=== PATIENT | female | born 1935 | race Caucasian/White ===

== ENCOUNTER → 2016-07-16 | Outpatient (REF) | payer MEDICARE ==
[~2016-07-16] MED LIST: /DULO30CA OR; ACET-654 PO; ALBU17IN INH; AMLO10TA OR; AMLO10TA2 PO; AMOX500C PO; ANUS2.5C2 TOP; AUGM875T27 PO; BABY81CH PO; BENI20TA11 OR; BENI40TA3 PO; Benicar PO; CALCTAB41 PO; CIPR500T89 PO; CRAN1TAB PO; CYMB1CAP5 PO; FERR325T PO; FISH1000 PO; GLUCTAB2 OR; HYDR-3713 PO; HYDR12.55 PO; LEVO25TA5 PO; LEVOTHYROXINE PO; LYRI150C OR; LYRI75CA PO; METF-414 PO; METF500T PO; METO-207 PO; MUCI600T34 PO; MULTIVIT PO; Metformin PO; NITRO10CA PO; OMEP20TA7 OR; ONGL10TA3 PO; ONGLYZA PO; Onglyza; PAIN325T OR; PRAV40TA OR; PRAV40TA PO; PRED20TA PO; PREPOI TOP; TOPR200T OR; TRAM50TA2 PO; TRIC145T19 PO; ULTR50TA PO; VICO5TAB OR; VICO5TAB16 PO; VICODINES TAB OR; VIT D 1000 UNIT PO; VITA100037 PO; VITA100066 PO; VITMTA PO; WOMETAB9 PO; XARE20TA PO; deltasone PO
[2016-07-16 11:23] LABS: CALCIUM LEVEL 9.6 MG/DL (8.8-10.2); CREATININE FOR GFR 0.98 MG/DL (0.55-1.02); GLOMERULAR FILTRATION RATE 57.7 (>32); POTASSIUM SERUM 4.6 MEQ/L (3.5-5.1)
== END ==
PROVIDERS: ATTEND Nurse Practitioner Adult Health
DX: I10 Essential (primary) hypertension (principal)

== ENCOUNTER → 2016-07-25 | Day surgery (SDC) | payer MEDICARE ==
[~2016-07-25] VITALS: Ht 170.2 cm; Wt 81.6 kg
[~2016-07-25] MED LIST changes: +ACETAMINOPHEN TAB 650MG DOSE (2X325MG) PO PRN; +GENTGEL OP; +LASI20TA PO; +LIDOCAINE 1% MDV 20ML VIAL SQ PRN; +LR 1,000 ML IV SCH; +MIDAZOLAM INJ 2 MG/2 ML VIAL (J2250) As Ordered ONE; +ONDANSETRON 4MG/2ML VIAL (J2405) As Ordered ONE; +ONDANSETRON 4MG/2ML VIAL (J2405) IV PRN; +PROPOFOL 200 MG/20 ML VIAL As Ordered ONE; +dexameTHASONE 4 MG/ML 1ML VIAL (J1100) As Ordered ONE; +fentaNYL 100 MCG/2 ML INJECTION (J3010) IV PRN; +fentaNYL 250 MCG/5 ML INJECTION (J3010) As Ordered ONE
[2016-07-25 17:25] VITALS: BP 139/72
--- NOTE | 2016-07-25 23:54 | RO ---
DATE OF PROCEDURE: 07/25/2016 PREOPERATIVE DIAGNOSIS: Hematuria with abnormal office cystoscopy. POSTOPERATIVE DIAGNOSIS: Hematuria with abnormal office cystoscopy. PROCEDURE: Cystourethroscopy with bladder biopsies and washing. SURGEON: Dr. Magda Diaz FOAM RUBBER CURER: ANESTHESIA: General endotracheal anesthesia. BRIEF DESCRIPTION OF PROCEDURE AND FINDINGS: Marija was brought to the operating room where sufficient general endotracheal anesthesia was induced and she was prepped, draped, and positioned in the usual sterile fashion. She has a known caruncle; this is a non-issue for her procedure. We then placed the cystoscope and, as in the office, had a view that is almost like a field of snow due to the amount of detritus and inflammation. Pictures were taken to document this. We rinsed out the bladder a few times so as to improve the field of view. Still had quite a bit of debris within the bladder and also marked inflammation and hyperemia of the bladder wall, quite suspicious for abnormal lesion. Some of this was focused on the trigone visually but also the base of the bladder and also extending to the left lateral of the trigone superior and a little bit to the right lateral of it. We did not see as many lesions at the dome, nor did we see lesions anteriorly. We went ahead and biopsied in several locations and gathered some washings for evaluation of the debris on the expectation that this is a significant bladder lesion. All of that was sent for pathologic evaluation. We were able, even with the inflammation of the bladder wall, to simply use the biopsy forceps and do cold biopsies. We did not really have to use cautery, and it was simple enough to get samples and decent adequate samples that we did not feel that we needed to do large cautery biopsies and felt that these would be diagnostic. So, after evaluating the sites where there was no persistent bleeding, just some clots over the sites themselves, the procedure was ended. Again, we already had washings and we had already gathered samples. Estimated blood loss for the procedure was approximately 5 mL. SPECIMENS: Already noted. FLUID REPLACEMENT: Crystalloid. COMPLICATIONS: None. CONDITION AND DISPOSITION: Marija tolerated the procedure well and was recovering in the recovery room in good condition.
== END | disposition home or self-care (01) ==
LOC: M SDC 12:46
PROVIDERS: ATTEND Obstetrics & Gynecology
DX: N32.89 Other specified disorders of bladder (principal); I35.1 Nonrheumatic aortic (valve) insufficiency; I48.0 Paroxysmal atrial fibrillation; I11.9 Hypertensive heart disease without heart failure; E11.9 Type 2 diabetes mellitus without complications; E78.5 Hyperlipidemia, unspecified; K57.32 Diverticulitis of large intestine without perforation or abscess without bleeding; Z87.891 Personal history of nicotine dependence; Z79.899 Other long term (current) drug therapy; Z88.8 Allergy status to other drugs, medicaments and biological substances; Z91.030 Bee allergy status; Z91.041 Radiographic dye allergy status
CPT/HCPCS: 52204; 88108; 88305; J1100; J2250; J2405; J3010

== ENCOUNTER → 2016-07-29 | Outpatient (REF) | payer MEDICARE ==
[~2016-07-29] MED LIST changes: -ACETAMINOPHEN TAB 650MG DOSE (2X325MG) PO PRN; -LIDOCAINE 1% MDV 20ML VIAL SQ PRN; -LR 1,000 ML IV SCH; -MIDAZOLAM INJ 2 MG/2 ML VIAL (J2250) As Ordered ONE; -ONDANSETRON 4MG/2ML VIAL (J2405) As Ordered ONE; -ONDANSETRON 4MG/2ML VIAL (J2405) IV PRN; -PROPOFOL 200 MG/20 ML VIAL As Ordered ONE; -dexameTHASONE 4 MG/ML 1ML VIAL (J1100) As Ordered ONE; -fentaNYL 100 MCG/2 ML INJECTION (J3010) IV PRN; -fentaNYL 250 MCG/5 ML INJECTION (J3010) As Ordered ONE
== END ==
LOC: M LAB REF 17:32
PROVIDERS: ATTEND Nurse Practitioner Family
DX: R30.0 Dysuria (principal)

== ENCOUNTER 2016-08-12 11:49 | Emergency (ER) | payer MEDICARE ==
[~2016-08-12] VITALS: Ht 170.2 cm; Wt 81.6 kg
[2016-08-12 13:09] LABS: BASO % 0.2 % (0.0-1.0); EOS # 0.1 K/mm3 (0.0-0.50); EOS % 1.1 % (0.0-3.0); LARGE UNSTAINED CELL # 0.1 K/mm3 (0.0-0.4); LARGE UNSTAINED CELL % 0.7 % (0.0-4.0); LYMPH # 0.5 K/mm3 (1.5-4.5); LYMPH % 5.2 % (24.0-44.0); MEAN CORPUSCULAR HEMOGLOBIN 29.9 pg (27.0-33.0); MEAN CORPUSCULAR HGB CONC 32.8 g/dl (32.0-36.5); MEAN CORPUSCULAR VOLUME 91.1 fl (80.0-96.0); MONO # 0.5 K/mm3 (0.0-0.8); MONO % 6.4 % (0.0-5.0); NEUTROPHILS # 7.3 K/mm3 (1.8-7.7); NEUTROPHILS % 86.4 % (36.0-66.0); PLATELET COUNT, AUTOMATED 167 k/mm3 (150-450); RED CELL DISTRIBUTION WIDTH 12.3 % (11.5-14.5); WHITE BLOOD COUNT 8.5 K/mm3 (4.0-10.0)
[2016-08-12 13:29] LABS: ANION GAP 8 MEQ/L (8-16); BLOOD UREA NITROGEN 25 MG/DL (7-18); CALCIUM LEVEL 9.4 MG/DL (8.8-10.2); CARBON DIOXIDE LEVEL 31 MEQ/L (21-32); CHLORIDE LEVEL 103 MEQ/L (98-107); CREATININE FOR GFR 0.87 MG/DL (0.55-1.02); GLOMERULAR FILTRATION RATE > 60.0 (>32); GLUCOSE, FASTING 127 MG/DL (83-110); POTASSIUM SERUM 4.1 MEQ/L (3.5-5.1); SODIUM LEVEL 142 MEQ/L (136-145)
[2016-08-12 13:32] LABS: INR 1.62
--- NOTE | 2016-08-12 15:11 | REP ---
PELVIC ULTRASOUND AND ENDOVAGINAL PROBE PELVIC ULTRASOUND: 08/12/2016 CLINICAL HISTORY 81-year-old with postmenopausal bleeding. Status post hysterectomy and left oophorectomy. COMPARISON: 01/04/2016. FINDINGS: Both transabdominal and endovaginal probes were utilized. The bladder was adequately filled at 10.3 x 9.2 x 7.6 cm. There may be some echogenic debris in the bladder. The vaginal cuff is grossly intact. The left ovary is absent. In the right adnexal region, there is a dominant cyst 7.8 x 7.2 x 5.3 cm. It has some complex features of septation. A few internal echoes. No color flow within it. On the previous study it measured 9 x 6.8 x 5.9 cm. The ovary itself including the cyst measured 7.5 x 6.5 x 6.3 cm. There was color flow at the soft tissues peripheral margin of that ovary. No free fluid. IMPRESSION: 1. Complex right adnexal cyst or cystic mass; it measures 7.2 x 7.8 x 5.3 cm. It is slightly smaller than on the previous study. The left adnexa shows no mass or cyst in this patient who had prior removal of that left ovary. Vaginal cuff intact. The bladder showed some likely echogenic debris. Signed by Zachary Naylor MD 08/12/2016 05:21 P
[2016-08-12 16:37] VITALS: BP 174/77
--- NOTE | 2016-08-14 21:10 | ED PDOC ---
Post-Departure Follow-Up dr atwood and dr thorpe faxed formal report of pelvic us for fu Katrin Salcido MD Aug 14, 2016 21:10
== END 2016-08-12 16:53 | disposition home or self-care (01) ==
LOC: EDBD 11:49 → M ED 12:56
DX: N93.9 Abnormal uterine and vaginal bleeding, unspecified (principal); N83.209 Unspecified ovarian cyst, unspecified side; E11.9 Type 2 diabetes mellitus without complications; E78.5 Hyperlipidemia, unspecified; Z91.041 Radiographic dye allergy status; Z91.030 Bee allergy status; Z79.899 Other long term (current) drug therapy; Z88.8 Allergy status to other drugs, medicaments and biological substances; Z79.84 Long term (current) use of oral hypoglycemic drugs; R51 Headache; I10 Essential (primary) hypertension; E78.00 Pure hypercholesterolemia, unspecified; Z87.440 Personal history of urinary (tract) infections; H54.8 Legal blindness, as defined in USA; M54.30 Sciatica, unspecified side; E03.9 Hypothyroidism, unspecified

== ENCOUNTER → 2016-09-04 | Outpatient (REF) | payer MEDICARE ==
[~2016-09-04] MED LIST changes: +ACET30TAB PO; +BACT800T5 PO; +ESTR1CRE PV; +ESTRACE; +GENT0.2D2 OU; +LEVO75TA4 PO; +MILKSUS PO; +MOM30SS PO; +MYRB25TA PO; +XARE15TA PO
== END ==
LOC: M LAB REF 09:23
PROVIDERS: ATTEND Obstetrics & Gynecology
DX: R30.0 Dysuria (principal)

== ENCOUNTER 2016-09-08 15:47 | Emergency (ER) | payer MEDICARE ==
[~2016-09-08] VITALS: Ht 170.2 cm; Wt 81.6 kg
[~2016-09-08 15:47] MED LIST changes: -ACET30TAB PO; -BACT800T5 PO; -ESTR1CRE PV; -ESTRACE; -GENT0.2D2 OU; -LEVO75TA4 PO; -MILKSUS PO; -MOM30SS PO; -MYRB25TA PO; -XARE15TA PO
[2016-09-08] MEDS ORDERED: TETANUS/DIPHTHERIA TOX ADSORB ADULT 0.5ML SYR/VIAL (90714) IM ONE (16:45)
[2016-09-08] MEDS ORDERED: ACETAMINOPH W/CODEINE #3 TAB UD PO ONE (16:45)
--- NOTE | 2016-09-08 17:36 | REP ---
CT CERVICAL SPINE WITHOUT CONTRAST: REASON: Pain in the neck after trauma. COMPARISON: 10/22/2015 Once again, there is marked degenerative seen throughout the cervical spine with marked disc space narrowing and anterior and posterior osteophytosis along with C3 on C4 anterolisthesis all unchanged. Vertebral body height and alignment is unchanged. Multilevel foraminal narrowing status quo. Degenerative hypertrophic facet and uncovertebral joint changes are present at every level bilaterally, unchanged. The transverse processes are absent from C3 to C6. The lamina are also absent. There is no evidence of an acute fracture. There is no evidence of abnormal paraspinal soft-tissue swelling. It should be stated that the images are of poor quality and very grainy in appearance with increased noise to signal ratio. IMPRESSION: Marked chronic changes but no significant change from 10/22/2015 and no evidence of an acute fracture. Due to the poor quality of the images consider repeat using altered technical parameters to increase bone window sensitivity. Signed by Francis Allison DO 09/09/2016 09:56 A
--- NOTE | 2016-09-08 17:52 | REP ---
CT HEAD WITHOUT CONTRAST: REASON: Pain after trauma. COMPARISON: 10/22/2015 Once again, there is cerebral and cerebellar atrophy with ventricular enlargement and sulcal dilatation all stable. There is no evidence of an acute intracranial hemorrhagic or nonhemorrhagic event. There is no shift in the midline structures. There are no extra axial fluid collections. The posterior fossa shows cerebellar atrophy status quo. There is a scalp hematoma over the right frontal region extending toward the vertex. There is no skull fracture. IMPRESSION: Stable appearing chronic changes without evidence of acute disease with findings as described above. Signed by Francis Allison DO 09/09/2016 09:56 A
[2016-09-08 18:27] VITALS: BP 195/83
== END 2016-09-08 18:46 | disposition home or self-care (01) ==
LOC: EDBD 15:47 → M ED 16:05
DX: S00.01XA Abrasion of scalp, initial encounter (principal); W01.198A Fall on same level from slipping, tripping and stumbling with subsequent striking against other object, initial encounter; Y92.129 Unspecified place in nursing home as the place of occurrence of the external cause; Y93.89 Activity, other specified; Y99.8 Other external cause status; E11.9 Type 2 diabetes mellitus without complications; I10 Essential (primary) hypertension; I48.91 Unspecified atrial fibrillation; M48.00 Spinal stenosis, site unspecified; K21.9 Gastro-esophageal reflux disease without esophagitis; D64.9 Anemia, unspecified; Z79.899 Other long term (current) drug therapy; Z79.4 Long term (current) use of insulin; Z91.030 Bee allergy status; Z91.041 Radiographic dye allergy status; Z88.8 Allergy status to other drugs, medicaments and biological substances; Z91.048 Other nonmedicinal substance allergy status

== ENCOUNTER 2016-09-12 18:32 | Emergency (ER) | payer MEDICARE ==
[~2016-09-12] VITALS: Ht 170.2 cm; Wt 87.1 kg
[2016-09-12] MEDS ORDERED: BACT800T5 PO (19:29)
[2016-09-12] MEDS ORDERED: BENI40TA3 PO (19:29)
[2016-09-12] MEDS ORDERED: MYRB25TA PO (19:29)
[2016-09-12 20:08] VITALS: BP 139/77
== END 2016-09-12 20:26 | disposition home or self-care (01) ==
LOC: M ED 19:30
DX: S30.0XXA Contusion of lower back and pelvis, initial encounter (principal); W18.30XA Fall on same level, unspecified, initial encounter; Y92.013 Bedroom of single-family (private) house as the place of occurrence of the external cause; Y93.89 Activity, other specified; Y99.8 Other external cause status; E11.9 Type 2 diabetes mellitus without complications; I10 Essential (primary) hypertension; E03.9 Hypothyroidism, unspecified; G62.9 Polyneuropathy, unspecified; E78.00 Pure hypercholesterolemia, unspecified; Z87.09 Personal history of other diseases of the respiratory system; Z79.899 Other long term (current) drug therapy; Z79.84 Long term (current) use of oral hypoglycemic drugs; Z91.030 Bee allergy status; Z91.041 Radiographic dye allergy status; Z88.8 Allergy status to other drugs, medicaments and biological substances

== ENCOUNTER 2016-09-16 12:05 | Inpatient (IN) | payer MEDICARE ==
[~2016-09-16] VITALS: Ht 170.2 cm; Wt 84.1 kg
[~2016-09-16 12:05] MED LIST changes: +BACT800T5 PO; +MYRB25TA PO
[2016-09-16] MEDS ORDERED: ESTRACE (12:44)
[2016-09-16] MEDS ORDERED: MILKSUS PO ×2 (12:44→15:22)
[2016-09-16] MEDS ORDERED: PRAV40TA PO (12:44)
[2016-09-16] MEDS ORDERED: ALBU17IN INH (12:44)
[2016-09-16] MEDS ORDERED: MOM30SS PO (12:44)
[2016-09-16] MEDS ORDERED: ACET30TAB PO (12:44)
[2016-09-16] MEDS ORDERED: LEVO75TA4 PO (12:44)
--- NOTE | 2016-09-16 14:43 | REP ---
Clinical: Trauma. Technique: PA and lateral. Comparison: 01/03/2016. Findings: Chronic stable changes including elevation to the right hemidiaphragm remains essentially unchanged compared to prior examination. Underlying basilar atelectasis cannot be excluded. No pneumothorax. Visualized portions of the mediastinum and cardiac silhouette are stable and within normal limits. Skeletal structures demonstrate degenerative changes primarily involving the thoracic spine and left shoulder. Impression: Chronic stable changes. Cannot exclude subtle superimposed basilar atelectasis. Signed by Micha Villa MD 09/16/2016 02:33 P
--- NOTE | 2016-09-16 14:57 | REP ---
CT BRAIN WITHOUT CONTRAST: 09/16/2016. Comparison: 09/08/2016. Clinical history: Trauma. Findings: Noncontrast images of the brain were performed. Ventricles are midline, symmetric and showing proportional dilatation to the diffuse moderately severe cerebral atrophy. That atrophy is greatest in the temporal and frontal lobes. There is extensive periventricular low density white matter change representing chronic small vessel ischemic change of aging. Again noted is a scalp hematoma right frontal vertex scalp in a similar location to the hematoma on the last week's scan. There is no subjacent skull fracture and no intracranial hemorrhage or contrecoup injury. The intracranial contents and cerebral hemispheres are without mass, edema, acute infarct or mass effect. No midline shift. Third and fourth ventricles intact. Brainstem intact. Cerebellar atrophy is diffuse and moderate and basal cisterns were intact. Mastoids intact. The sinuses show visualized portions of frontal and sphenoids to be clear while one of the posterior ethmoid air cells on the right is opacified. Skull base and calvarium show no fracture or focal lesion. Impression: 1. There is a scalp hematoma over the right frontal vertex similar to the previous study of 8 days ago and without intracranial hemorrhage, adjacent frontal skull fracture or contrecoup injury. 2. No evidence of intracranial mass, mass effect or interval change and there is chronic white matter small vessel ischemic appearance of both cerebral hemispheres. 3. No acute infarct, mass or mass effect. Basal ganglia is symmetric, grossly intact. Cerebellar atrophy with moderately severe cerebral atrophy proportionate to the ventricles and the normal mastoids unchanged. Minor right posterior ethmoid air cell opacified. Sinuses otherwise clear. Signed by Zachary Naylor MD 09/16/2016 05:22 P
[2016-09-16 15:02] LABS: BASO % 0.2 % (0.0-1.0); EOS # 0.1 K/mm3 (0.0-0.50); EOS % 1.3 % (0.0-3.0); LARGE UNSTAINED CELL # 0.2 K/mm3 (0.0-0.4); LARGE UNSTAINED CELL % 1.9 % (0.0-4.0); LYMPH # 1.3 K/mm3 (1.5-4.5); LYMPH % 12.3 % (24.0-44.0); MEAN CORPUSCULAR HGB CONC 32.1 g/dl (32.0-36.5); MEAN CORPUSCULAR VOLUME 93.4 fl (80.0-96.0); MONO # 0.7 K/mm3 (0.0-0.8); MONO % 6.5 % (0.0-5.0); NEUTROPHILS # 8.5 K/mm3 (1.8-7.7); NEUTROPHILS % 77.7 % (36.0-66.0); PLATELET COUNT, AUTOMATED 237 k/mm3 (150-450); RED CELL DISTRIBUTION WIDTH 12.7 % (11.5-14.5); WHITE BLOOD COUNT 10.9 K/mm3 (4.0-10.0)
[2016-09-16 15:06] LABS: INR 1.42
--- NOTE | 2016-09-16 15:10 | REP ---
CT CERVICAL SPINE WITHOUT CONTRAST: 09/16/2016. Clinical history: Trauma. Comparison: 09/08/2016. Findings: Axial with coronal and sagittal reconstruction images are reviewed. There is degenerative change with spondylosis throughout the cervical spine with disc space narrowing at all levels, least at C2-3. Posterior osteophytes at C2-3, and then at C4-5 through C7-T1. Anterior osteophytes at most levels. No acute compression deformity. There are a few millimeters of anterolisthesis of C3 on 4. Laminectomies from the C3-4 through C7-T1 as on the previous study. Facet arthropathy is noted. Slight reversal of lordosis at the C4-5 level. The dens shows normal relationship to the anterior arch of C1 and its lateral masses on all projections. No dense fracture . Ring of C1 intact. Craniocervical junction intact. Cervical thoracic junction preserved. There is no destructive lesion or acute fracture. No prevertebral swelling. Impression: 1. Extensive diffuse degenerative disc change from C3-4 through C7-T1 with complete loss of disc space heights at most of those levels with anterior and posterior osteophytes and with mild to moderate disc space narrowing at C2-3. No prevertebral swelling or malalignment. 2. Status post laminectomies from C3-4 through C7-T1 with alignment maintained and unchanged from the previous study. No acute fracture or malalignment. Signed by Zachary Naylor MD 09/16/2016 05:23 P
--- NOTE | 2016-09-16 15:11 | REP ---
CT MAXILLOFACIAL WITHOUT CONTRAST: 09/16/2016. CLINICAL HISTORY: Trauma. COMPARISON: None. FINDINGS: Axial bone and soft tissue windows with coronal and sagittal bone reconstructions provided. The septum is deviated towards the left. There is some minor mucosal thickening of the posterior right ethmoid air cell. Frontal and sphenoid sinuses are clear. The maxillary sinuses show no mucosal thickening. The ostiomeatal complexes are more horizontal in their course but the ostium and infundibulum are patent. Hida semilunaris intact. No loco bullosa of the middle turbinates. Orbital floors intact. Orbital struts, zygomatic arches and the visualized portions of maxilla, nasal bones and mandible without fracture or destructive lesion. No definite of facial, hematoma or acute nasal bone fracture. IMPRESSION: 1. No facial bone fracture. There is minor deviation of nasal septum towards the left side anteriorly with a single posterior right ethmoid air cell with mucosal thickening. No air-fluid levels or sinus abnormality. 2. No orbital, sinus, mandibular, maxillary other facial fractures. The skull base, calvarium and mastoids intact. Signed by Zachary Naylor MD 09/16/2016 05:23 P
[2016-09-16] MEDS ORDERED: GENT0.2D2 OU (15:20)
[2016-09-16] MEDS ORDERED: XARE15TA PO (15:20)
[2016-09-16 15:23] LABS: ANION GAP 6 MEQ/L (8-16); BLOOD UREA NITROGEN 34 MG/DL (7-18); CARBON DIOXIDE LEVEL 30 MEQ/L (21-32); CHLORIDE LEVEL 103 MEQ/L (98-107); CREATININE FOR GFR 1.07 MG/DL (0.55-1.02); FREE T4 1.13 NG/DL (0.76-1.46); GLOMERULAR FILTRATION RATE 52.1 (>32); GLUCOSE, FASTING 100 MG/DL (83-110); POTASSIUM SERUM 4.8 MEQ/L (3.5-5.1); SODIUM LEVEL 139 MEQ/L (136-145)
[2016-09-16] MEDS ORDERED: BACT800T5 PO (15:28)
[2016-09-16] MEDS ORDERED: ESTR1CRE PV (15:41)
[2016-09-16] MEDS ORDERED: PREGABALIN 75 MG CAP(LYRICA) PO SCH (16:00)
[2016-09-16] MEDS ORDERED: ONDANSETRON 4MG/2ML VIAL (J2405) IV PRN (16:30)
[2016-09-16] MEDS ORDERED: NS 1,000 ML IV SCH (16:30)
[2016-09-16] MEDS ORDERED: ACETAMINOPHEN TAB 650MG DOSE (2X325MG) PO PRN (16:30)
[2016-09-16] MEDS ORDERED: ALBUTEROL 90 MCG/ACT 8GM HFA INHALER INH PRN (16:30)
[2016-09-16] MEDS ORDERED: GLUCOSE 4 GM CHEW TABLET PO PRN (16:30)
[2016-09-16] MEDS ORDERED: GLUCAGON FOR INJ 1 MG VIAL (J1610) SC PRN (16:30)
[2016-09-16] MEDS ORDERED: DEXTROSE 50% 50 ML SYRINGE IV PRN (16:30)
[2016-09-16] MEDS ORDERED: MOM 30ML SUSPENSION UDC PO PRN (16:30)
--- NOTE | 2016-09-16 17:14 | HPE ---
DATE OF ADMISSION: 09/16/2016 PRIMARY CARE PROVIDER: Dr. Chaidez. CHIEF COMPLAINT: Frequent falls. HISTORY OF PRESENT ILLNESS: This is an 81-year-old female patient with underlying medical history of atrial fibrillation on Xarelto, mild dementia, type 2 diabetes, peripheral neuropathy, pulmonary artery hypertension, chronic hypoxia on about three liters of oxygen at assisted living, spinal stenosis, hypothyroidism, dyslipidemia, depression, baseline ambulating with a walker from assisted living. As per patient, she has been experiencing frequent falls. About four this morning, per patient, she has peripheral neuropathy and when she turns, she loses her balance and feels lightheaded, and subsequently fell, eased herself to the ground this morning, and about 2-3 days ago, she also had a similar episode, and about two weeks ago, she had a fall in which she slammed her head against a wall and had significant bleeding and bruising on her head, with raccoon eyes, and bruising that is doing down her neck as well. The patient denies any neck pain, chest pain, pressure, discomfort. Denies any palpitations, lower extremity swelling. The patient stated that she feels good and wanted to leave the hospital. Currently denies any lightheadedness. Patient baseline ambulating with a walker. Denies any vision change, hearing change, nausea or vomiting, fever or chills, coughing, diarrhea, constipation. ALLERGIES: The patient reported adverse reaction to: 1. BEE VENOM. 2. CONTRAST MEDIUM 3. POTASSIUM IODIDE 4. ANGIOTENSION-CONVERTING ENZYME (DANISHA) INHIBITORS. PAST MEDICAL HISTORY: 1. Atrial fibrillation on Xarelto. 2. Mild dementia. 3. Type 2 diabetes. 4. Peripheral neuropathy. 5. Pulmonary artery hypertension. 6. Spinal stenosis. 7. Hypothyroidism. 8. Dyslipidemia. 9. Depression. PAST SURGICAL HISTORY: 1. Bilateral hip arthroplasty. 2. Hysterectomy. 3. Appendectomy. 4. Cataract surgery bilaterally. 5. Back surgery, laminectomy, lumbar and cervical. SOCIAL HISTORY: The patient smoked when she was very young, quit many, many years ago. Does not even remember. Denies alcohol drinking. Lives at assisted living. REVIEW OF SYSTEMS: 10-point review of systems all negative except for those mentioned in history of present illness (HPI). FAMILY HISTORY: Noncontributory. HOME MEDICATIONS: - Tylenol No.3 one tablet by mouth four times a day as needed - Ventolin inhaler every four hours as needed - Cymbalta 30 mg by mouth twice a day - estradiol 42.5 grams of cream as needed vaginal suppository - ferrous sulfate 325 mg by mouth daily - Lasix 20 mg by mouth daily - hydroxypropyl methylcellulose eye drops twice a day - levothyroxine 75 mcg by mouth daily - metformin 500 mg by mouth twice a day - metoprolol succinate 50 mg by mouth at bedtime - milk of magnesia 30 mL by mouth daily as needed - mirabegron 25 mg by mouth daily - Benicar 40 mg by mouth daily - Pravachol 40 mg by mouth at bedtime - Lyrica 75 mg by mouth three times a day - Xarelto 15 mg by mouth every evening - Bactrim 800/160 mg one tablet by mouth twice a day PHYSICAL EXAMINATION: VITAL SIGNS: Temperature 98.4, pulse 62, respirations 18, blood pressure 142/68, pulse oximetry 96% on room air. GENERAL: The patient alert and oriented times three, in no acute distress. HEENT: Patient had bilateral raccoon eyes with bruising involving most of her face and also down the right side of her neck. Pupils bilaterally equal, round, and reactive. PULMONARY: Bilaterally clear to auscultation. CARDIAC: Irregular, no tachycardia. S1, S2. ABDOMEN: Soft, nontender, nondistended. EXTREMITIES: Able to move bilateral lower extremities. No edema bilateral lower extremities. NEUROLOGIC: Cranial nerves II through XII grossly intact. Able to move all four extremities. Motor function intact. EKG: Sinus rhythm at 85, T-wave inversion V5 which is present on previous EKG as well. LABORATORY DATA: WBC 10.9, hemoglobin and hematocrit 13.5 over 41.9, platelets 237. Chemistry sodium 139, potassium 4.8, chloride 103, bicarbonate 39, BUN 34, creatinine 1.07. Cardiac enzymes negative times one. TSH within normal limits. UA has also been negative. Recently treated for E. coli UTI. IMAGING: CT of the head shows scalp hematoma over the right frontal vertex, similar to previous study eight days ago without intracranial hemorrhage or fracture. CT of the cervical spine: Degenerative disc changes C3-C4 through to C7-T1, with complete loss of disc space height in most of those levels, with anterior and posterior osteophytes and with mild to moderate disc space narrowing at C2-C3. No perivertebral swelling or malalignment. Status post laminectomy C3-C4 through C7-T1 with alignment maintained. No change from previous studies. ASSESSMENT AND PLAN: This is an 81-year-old female patient with underlying medical history of atrial fibrillation on Xarelto, mild dementia, type 2 diabetes, peripheral neuropathy, pulmonary artery hypertension, chronically on oxygen, spinal stenosis, hypothyroidism, dyslipidemia, depression, admitted for frequent falls from assisted living. Baseline ambulating with a walker. 1. Frequent falls, possibly secondary to peripheral neuropathy with gait instability. As per patient, described baseline ambulating with a walker. Physical therapy/occupational therapy (PT/OT). Followup MRI/MRA of the brain to rule out cerebellar infarct. Mild intravenous (IV) hydration. Orthostatic vital signs. Holding Lasix. 2. Atrial fibrillation. Continue beta blockers. Holding Xarelto given frequent falls. Will decide when to restart at a later date. 3. Mild dementia. Supportive care. 4. Type 2 diabetes. Insulin as per protocol. Holding metformin. 5. Peripheral neuropathy. Continue current medication, physical therapy. 6. Dyslipidemia. Continue statin. 7. Hypothyroidism. Thyroid function appreciated. Continue Synthroid. 8. Spinal stenosis. Continue pain medications, supportive care. 9. Pulmonary artery hypertension. Continue oxygen supplementation, supportive care. Outpatient followup. 10. Depression. Continue current medications. 11. Deep venous thrombosis (DVT) prophylaxis. Sequential compression devices. 12. Scalp hematoma and bruising. CT scan appreciated. Supportive care. Holding anticoagulation. DISPOSITION: Pending PT, OT. MRI/MRA of the brain. Supportive care.
[2016-09-16] MEDS: HumaLOG INSULIN (NovoLOG) PER UNIT SC SCH ×2 (17:30→21:00)
--- NOTE | 2016-09-16 21:20 | REPUSA ---
MRI of the brain Clinical history: fall, weakness. Technique: [id number] MRA images of the brain were obtained without administration of contrast. 3 -D MIP images were also obtained. Findings: The vascular structures extending from the distal carotid and vertebrobasilar arterial syst ems, through the [place] of [place], demonstrate normal caliber and contour. The left vertebral artery is dominant. There is no evidence of aneurysm, stenosis, or thrombosis. Impression: Unremarkable MRA examination of the brain.
--- NOTE | 2016-09-16 21:20 | REPUSA ---
MRI of the brain Clinical history: weakness, fall. Technique: Multiecho multiplanar MRI images of the brain were obtained without administration of cont rast. Diffusion weighted images with ADC mapping was also obtained. Comparison: 10/24/2015. Findings: The ventricles and sulci are symmetric but prominent in size bilaterally. The brain parenchyma demons trates diffuse areas of T2 hyperintensity in the subcortical white matter and periventricular regions . This is stable since the prior study. There is no midline shift, mass effect, or extra-axial fluid collection. The midline intracranial structures do not demonstrate any gross abnormalities. The cervi reji cranial junction is intact. The orbits are unremarkable. The visualized paranasal sinuses and mas toid air cells are clear. The osseous structures and superficial soft tissues are unremarkable. The v ascular structures demonstrate appropriate flow voids. There is a focal superficial soft tissue contu clementine in the right superior frontal region. Impression: 1. No evidenceof acute infarct or hemorrhage. 2. Moderately severe age-related atrophy with diffuse chronic small vessel ischemic disease, which is grossly similar in severity since the prior study of 2015. 3. Acute superficial soft tissue contusion in the right frontal region.
--- NOTE | 2016-09-16 21:21 | ECGEPIP ---
Stationary ECG Study [facility] - ED Test Date: 2016-09-16 Pat Name: BUD SCHULER Department: Room: - Gender: F Experimental [employer]: ANGELA : [id number] Requested By: LETY Loomis Order Number: [id number] Reading MD: Katrin Armas Measurements Intervals [place] Rate: 58 P: 75 PA: 147 QRS: -16 QRSD: 93 T: 127 QT: 414 QTc: 410 Interpretive Statements SINUS BRADYCARDIA LEFT VENTRICULAR HYPERTROPHY AND ST-T CHANGE LAD CW 01/03/16 - RATE DECREASED NONSPECIFIC ST T WAVE CHANGES Electronically Signed On 09-16-2016 21:20:59 EDT by Katrin Armas
[2016-09-16] MEDS: PERCOCET 5MG/325MG TAB PO PRN (21:52)
[2016-09-16 22:54] VITALS: BP 134/62
[2016-09-16] MEDS: DULoxetine 30 MG CAP (CYMBALTA) PO SCH (23:02)
[2016-09-16] MEDS: SENOKOT S TAB PO SCH (23:02)
[2016-09-16] MEDS: PRAVASTATIN 20 MG TAB PO SCH (23:03)
[2016-09-16] MEDS: METOPROLOL SUCC (TopROL XL) 50MG **XL** TAB PO SCH (23:03)
[2016-09-16] MEDS: PREGABALIN 25 MG CAP (LYRICA) PO SCH (23:29)
[2016-09-16 23:59] VITALS: BP 122/60
[2016-09-17] VITALS (7 sets, daily range): BP systolic 132–143; BP diastolic 67–78
[2016-09-17] MEDS: LEVOTHYROXINE 0.075 MG TAB (75 MCG) PO SCH (05:23)
[2016-09-17 06:30] LABS: MEAN CORPUSCULAR HEMOGLOBIN 29.3 pg (27.0-33.0); MEAN CORPUSCULAR HGB CONC 31.8 g/dl (32.0-36.5); RED CELL DISTRIBUTION WIDTH 12.7 % (11.5-14.5); WHITE BLOOD COUNT 7.5 K/mm3 (4.0-10.0)
[2016-09-17 06:51] LABS: CALCIUM LEVEL 9.2 MG/DL (8.8-10.2); CREATININE FOR GFR 1.19 MG/DL (0.55-1.02); GLOMERULAR FILTRATION RATE 46.1 (>32); MAGNESIUM LEVEL 1.9 MG/DL (1.8-2.4); POTASSIUM SERUM 4.9 MEQ/L (3.5-5.1)
[2016-09-17] MEDS: HumaLOG INSULIN (NovoLOG) PER UNIT SC SCH ×4 (08:50→20:58)
[2016-09-17] MEDS: FERROUS SULFATE 325MG TAB PO SCH (08:50)
[2016-09-17] MEDS: PREGABALIN 25 MG CAP (LYRICA) PO SCH ×2 (08:51→17:07)
[2016-09-17] MEDS: SENOKOT S TAB PO SCH ×2 (08:51→21:00)
[2016-09-17] MEDS: OLMESARTAN MEDOXOMIL 20 MG TAB (BENICAR) PO SCH (08:51)
[2016-09-17] MEDS: DULoxetine 30 MG CAP (CYMBALTA) PO SCH ×2 (08:51→20:59)
--- NOTE | 2016-09-17 15:27 | IPN ---
DATE: 09/17/2016 SUBJECTIVE: This morning the patient tells me that she feels about the same as she did when she presented to the hospital. She tells me that she has good strength, but she still has dizziness while rising from seated position or turning while standing. She stills me that has progressively worsened over the last several weeks. Otherwise, she denies chest pain, lightheadedness, dizziness, nausea, vomiting or any new falls. OBJECTIVE: VITAL SIGNS: Temperature 97.9, pulse 56, respiratory rate 18, blood pressure 140/67, oxygen saturation 97% on 3 liters. GENERAL: She is an obese elderly female, very pleasant, smiling and laughing, sitting in her chair. She does not appear to be in any acute distress. HEENT: She has subconjunctival hemorrhage bilaterally with raccoon eyes and diffuse ecchymoses throughout her face. Moist mucous membranes. No elevation of CVP. CARDIOVASCULAR EXAM: S1 and S2, regular. RESPIRATORY EXAM: Clear. ABDOMINAL EXAM: Obese. EXTREMITIES: No clubbing, cyanosis or edema. Numerous areas of ecchymoses throughout her body. LABORATORY STUDIES: WBC 7.5, hemoglobin 12.4, hematocrit 38.9, platelet count 229. Chemistry panel: Sodium 139, potassium 4.9, chloride 104, bicarb 31, BUN 36, creatinine 1.1. Magnesium 1.9. Vitamin D slightly low at 22.6. TSH is 1.3, within normal limits. INR 1.4 Urinalysis essentially unremarkable. The patient did have an MRI of the brain, which revealed no evidence of acute infarct or hemorrhage. Moderate to severe age related atrophy and diffuse chronic small vessel ischemic disease. Similar since the prior study of 2016. Acute superficial soft tissue contusion of the right frontal region. The patient had an MRA of the brain that was unremarkable. Cervical CT spine that revealed extensive diffuse degenerative changes from C3/C4 through C7/T1 with complete loss of disc space and height at most of those levels with anterior posterior osteophytes. No prevertebral swelling or malalignment. Status post laminectomy C3-4 through C7-T1 with alignment maintained. No acute fracture or malalignment. The patient had a CT scan of the head which revealed a scalp hematoma. No evidence of intracranial mass, mass effect or interval change. The patient also had a maxillofacial CT that revealed no orbital, sinus, mandibular, maxillary or other facial fractures. No facial bone fractures. The patient also had a chest x-ray that revealed chronic stable changes. ASSESSMENT/PLAN: This is a 81-year-old female with vertigo and frequent falls. PROBLEMS: 1. Vertigo with frequent falls. The patient has a history of peripheral neuropathy which she attributes her falling to. Given that this has progressively worsened over the last several weeks, I have asked Dr. Reyes of neurology to see the patient as well as physical therapy to work with the patient as well, and occupational therapy, as she may benefit from vestibular rehab. An MRI/MRA ruled out any infarct. Her Lasix is currently on hold. 2. Atrial fibrillation. She is rate controlled with a beta-luciana. We are holding her anticoagulation given her propensity for falls. I would not start in the immediate future. 3. Dementia. Continue with supportive care. She lives in [facility]. 4. Type 2 diabetes. She is on a sliding scale. We have held her metformin. 5. Peripheral neuropathy. She is on Lyrica and Cymbalta. 6. Pulmonary artery hypertension with chronic hypoxic respiratory failure. Continue with supplemental oxygen. She is at her baseline. 7. Spinal stenosis. This may be a contributing factor as well. Continue with pain medications and supportive care. 8. Hypothyroidism. Continue with Synthroid. 9. Dyslipidemia. Continue with statin. 10. Depression. Continue with Cymbalta. 11. Deep vein thrombosis (DVT) prophylaxis. Sequentials and thromboembolic deterrent stockings (TEDS). DISPOSITION: Will continue to work with physical therapy.
[2016-09-17] MEDS: PRAVASTATIN 20 MG TAB PO SCH (21:00)
[2016-09-17] MEDS: METOPROLOL SUCC (TopROL XL) 50MG **XL** TAB PO SCH (21:01)
[2016-09-17] MEDS: ZONISAMIDE 25 MG CAP (ZONEGRAN) PO SCH (21:37)
[2016-09-17] MEDS: PREGABALIN 75 MG CAP(LYRICA) PO SCH (21:38)
[2016-09-18] VITALS (8 sets, daily range): BP systolic 117–162; BP diastolic 57–80
[2016-09-18 05:30] LABS: MEAN CORPUSCULAR HEMOGLOBIN 30.2 pg (27.0-33.0); MEAN CORPUSCULAR HGB CONC 32.1 g/dl (32.0-36.5); MEAN CORPUSCULAR VOLUME 94.4 fl (80.0-96.0); RED CELL DISTRIBUTION WIDTH 12.5 % (11.5-14.5); WHITE BLOOD COUNT 6.6 K/mm3 (4.0-10.0)
[2016-09-18 05:41] LABS: CALCIUM LEVEL 9.3 MG/DL (8.8-10.2); CREATININE FOR GFR 1.08 MG/DL (0.55-1.02); GLOMERULAR FILTRATION RATE 51.6 (>32); MAGNESIUM LEVEL 1.5 MG/DL (1.8-2.4); POTASSIUM SERUM 4.8 MEQ/L (3.5-5.1)
[2016-09-18] MEDS: LEVOTHYROXINE 0.075 MG TAB (75 MCG) PO SCH (06:44)
--- NOTE | 2016-09-18 06:58 | CR ---
DATE OF CONSULTATION: 09/17/2016 REASON FOR CONSULTATION: Frequent falls. HISTORY OF PRESENT ILLNESS: Marija Fritz is an 81-year-old woman with history of atrial fibrillation, type 2, diabetes, peripheral neuropathy, spinal stenosis who has been ambulating with a walker and lives at assisted living facility. She has been falling frequently. She has fallen three times in last 10 days. She has significant bruising on both signs of her face from her last fall. She states that two of these falls have been because of dizziness which is described as spinning sensation and has been happening for one year. It occurs two or three times of lasts for a couple of minutes. She can usually control her dizziness as she tries to sit down. When she falls, she thinks that she loses consciousness for a couple of seconds. Turning her head aggravates her dizziness and vertigo. Standing up from laying or sitting position does not make her dizzy. She has headaches since her last fall. She hit her head on the wall. She also has left-sided frozen shoulder. She has history of chronic intermittent neck and back pain and had neck and back surgeries in the past. She denies any dysphagia, dysarthria, diplopia or urinary incontinence. PAST MEDICAL HISTORY: Atrial fibrillation. Mild dementia. Type 2 diabetes. Peripheral neuropathy. Pulmonary hypertension. Cervical and lumbosacral stenosis. Hypothyroidism. Depression. Dyslipidemia. Cervical and lumbar laminectomy and decompression. Hysterectomy. Appendectomy. Bilateral hip arthroplasty. SOCIAL HISTORY: She quit smoking many years ago. She denies alcohol or illicit drugs. FAMILY HISTORY: Noncontributory. HOME MEDICATIONS: - Tylenol #3 one tablet by mouth four times daily as needed - Ventolin inhaler every 4 hours as needed - Cymbalta 30 mg by mouth twice daily - estradiol 42.5 mg cream as needed - Lasix 20 mg by mouth daily - levothyroxine 75 mcg by mouth daily - metformin 500 mg by mouth twice daily - metoprolol extended release 50 mg by mouth daily - Myrbetriq 25 mg by mouth daily - Benicar 40 mg by mouth daily - Pravachol 40 mg by mouth daily - Lyrica 75 mg by mouth three times daily - Xarelto 50 mg by mouth daily REVIEW OF SYSTEMS: All systems were reviewed and were found to be noncontributory except as mentioned in history of present illness. PHYSICAL EXAMINATION: Temperature 98, pulse 71, respiratory 18, blood pressure 132/78, 97% saturation on room air. Heart: Irregularly irregular. Lungs: Clear to auscultation. No pedal edema. She has decreased peripheral pulses. No gross musculoskeletal abnormalities. Ear, nose, throat examination is within normal limits. The patient is awake, alert, oriented to place, person and time. Normal speech, comprehension and repetition. Extraocular muscles are intact. No facial weakness. Tongue and uvula are midline. 5/5 strength in all four extremities. She has decreased cold pinprick vibration sensation in her feet. Deep tendon flexes are 1+ in arms and knees and absent at ankles. Gait is unsteady. DIAGNOSTIC STUDIES: Her CBC, metabolic profile and urinalysis were within normal limits. MRI brain showed small vessel ischemic disease of brain without any acute disease. MRA brain was within normal limits. CT scan of cervical spine showed multilevel degenerative disc disease and postsurgical changes. ASSESSMENT: 1. Multifactorial gait difficulty. 2. Benign positional vertigo. 3. Peripheral neuropathy likely due to diabetes. 4. Cervical and lumbosacral multilevel degenerative disc disease and history of lumbosacral spinal stenosis. The patient is status post cervical and lumbosacral laminectomies. PLAN: 1. Vestibular rehabilitation exercises. 2. Physical and occupational therapy. 3. Continue using a walker. 4. Zonisamide 25 mg by mouth twice daily. 5. We should weigh the risks and benefits of using anticoagulation in this case due to her frequent falls. She must use a walker and wheelchair as needed. 6. Follow with our office in 2 weeks after hospital discharge.
[2016-09-18] MEDS: ZONISAMIDE 25 MG CAP (ZONEGRAN) PO SCH ×2 (08:45→20:55)
[2016-09-18] MEDS: FERROUS SULFATE 325MG TAB PO SCH (08:45)
[2016-09-18] MEDS: HumaLOG INSULIN (NovoLOG) PER UNIT SC SCH ×4 (08:45→20:45)
[2016-09-18] MEDS: PREGABALIN 75 MG CAP(LYRICA) PO SCH ×3 (08:46→20:55)
[2016-09-18] MEDS: SENOKOT S TAB PO SCH ×2 (08:46→20:51)
[2016-09-18] MEDS: DULoxetine 30 MG CAP (CYMBALTA) PO SCH ×2 (08:46→20:50)
[2016-09-18] MEDS: OLMESARTAN MEDOXOMIL 20 MG TAB (BENICAR) PO SCH (08:46)
[2016-09-18] MEDS: METOPROLOL TART 25 MG TABLET PO SCH ×2 (08:47→20:54)
[2016-09-18] MEDS: PERCOCET 5MG/325MG TAB PO PRN (11:11)
--- NOTE | 2016-09-18 13:16 | IPN ---
DATE: 09/18/2016 SUBJECTIVE: Today the patient tells me that she feels the same and that she does not notice any significant improvement in her vertigo symptoms. She tells me that once again it does not occur at rest, but only when arising from a seated position and when turning around while standing. She denies chest pain, fevers, chills, lightheadedness, dizziness, nausea, vomiting, or diarrhea. She tells me at that point that her breakfast was cold this morning when she woke up, but otherwise happy. OBJECTIVE: VITAL SIGNS: Temperature 97.2, pulse 54, respiratory rate 18, blood pressure 136/63, oxygen saturation 95% on room air. GENERAL: She is a frail elderly female sitting up on the edge of her bed eating breakfast. She does not appear to be in any acute distress. HEENT: Unchanged. CARDIOVASCULAR EXAM: S1 and S2, she is mildly bradycardic. RESPIRATORY EXAM: Clear. ABDOMINAL EXAM: Benign. EXTREMITIES: No clubbing, cyanosis or edema. LABORATORY STUDIES: WBC 6.6, hemoglobin 12.8, platelet count 265. Chemistry panel: Sodium 139, potassium 4.8, chloride 105, bicarb 31, BUN 32, creatinine 1.0. Magnesium 1.5, repleted. Microbiology: Her urine culture was positive for Enterococcus faecium. No new imaging. ASSESSMENT/PLAN: This is an 81-year-old female with vertigo likely multifactorial in nature. PROBLEMS: 1. Vertigo with falls. Multifactorial with gait difficulty. Dr. Reyes's help is greatly appreciated. Likely a combination of benign positional vertigo, peripheral neuropathy and spinal stenosis. There is also the possibility that the patient has had some mild bradycardia related to beta-luciana she is on for atrial fibrillation rate control. At this time, I will cut her beta-luciana dose in half. Dr. Reyes started her on zonisamide. She has been advised to use a walker. We will attempt vestibular rehab exercises, and continue with physical therapy and occupational therapy. If she begins to improve she may be able to return to assisted living, however, if not she would likely require fpc placement given her propensity for falls. 2. Atrial fibrillation. She is rate controlled with a beta-luciana. We are cutting this dose in half. We will monitor her heart rate. We are holding her anticoagulation and I would recommendation continue holding it. Given her propensity for falls, I would not restart it in the immediate future. She should followup with neurology within two weeks. 3. Dementia. Continue with supportive care. She lives in [facility] [place], but she may benefit from fpc placement if her symptoms do not improve. 4. Type 2 diabetes. She is on a sliding scale. We have held her metformin. 5. Peripheral neuropathy. She is on Lyrica and Cymbalta. 6. Pulmonary artery hypertension with chronic hypoxic respiratory failure. Continue with her baseline supplemental oxygen. 7. Spinal stenosis. Continue with pain medications and supportive care. 8. Hypothyroidism. Continue with Synthroid. 9. Dyslipidemia. Continue with statin. 10. Depression. Continue with Cymbalta. 11. Deep vein thrombosis (DVT) prophylaxis. Continue with Sequentials and thromboembolic deterrent stockings (TEDS). DISPOSITION: Pending physical therapy evaluation. At the present time she is not safe for dispositioning. Will continue to monitor her progress and status closely.
[2016-09-18] MEDS: MAG SULF 1GM/100ML (MAG RUN) 1 GM in APPROPRIATE DILUENT 1 EA IV SCH ×2 (13:37→14:33)
[2016-09-18] MEDS: PRAVASTATIN 20 MG TAB PO SCH (20:50)
[2016-09-19] VITALS (7 sets, daily range): BP systolic 111–170; BP diastolic 58–79
[2016-09-19 05:35] LABS: MEAN CORPUSCULAR HEMOGLOBIN 29.3 pg (27.0-33.0); MEAN CORPUSCULAR HGB CONC 31.8 g/dl (32.0-36.5); MEAN CORPUSCULAR VOLUME 92.3 fl (80.0-96.0); RED CELL DISTRIBUTION WIDTH 12.5 % (11.5-14.5); WHITE BLOOD COUNT 6.3 K/mm3 (4.0-10.0)
[2016-09-19 05:43] LABS: CALCIUM LEVEL 9.4 MG/DL (8.8-10.2); CREATININE FOR GFR 1.02 MG/DL (0.55-1.02); GLOMERULAR FILTRATION RATE 55.1 (>32); MAGNESIUM LEVEL 2.1 MG/DL (1.8-2.4); POTASSIUM SERUM 4.4 MEQ/L (3.5-5.1)
[2016-09-19] MEDS: LEVOTHYROXINE 0.075 MG TAB (75 MCG) PO SCH (06:28)
[2016-09-19] MEDS: SENOKOT S TAB PO SCH ×2 (08:57→21:13)
[2016-09-19] MEDS: FERROUS SULFATE 325MG TAB PO SCH (08:57)
[2016-09-19] MEDS: DULoxetine 30 MG CAP (CYMBALTA) PO SCH ×2 (08:57→21:12)
[2016-09-19] MEDS: OLMESARTAN MEDOXOMIL 20 MG TAB (BENICAR) PO SCH (08:57)
[2016-09-19] MEDS: PREGABALIN 75 MG CAP(LYRICA) PO SCH ×3 (08:58→21:12)
[2016-09-19] MEDS: ZONISAMIDE 25 MG CAP (ZONEGRAN) PO SCH ×2 (08:59→21:13)
[2016-09-19] MEDS: HumaLOG INSULIN (NovoLOG) PER UNIT SC SCH ×4 (09:00→21:00)
--- NOTE | 2016-09-19 14:13 | IPN ---
DATE: 09/19/2016 SUBJECTIVE: Today the patient tells me that she thinks she is feeling a little bit better and that her dizziness is slightly improved, but she is not sure. She denies chest pain, shortness of breath, fevers, chills, nausea, vomiting, diarrhea, or any further falls. OBJECTIVE: VITAL SIGNS: Temperature 97.3, pulse 57, respiratory rate 18, blood pressure 128/59, oxygen saturation 95% on room air. GENERAL: She is a frail elderly female sleeping peacefully when I enter the room, but easily arousable to verbal stimuli. She does not appear to be in any acute distress. HEENT: Unchanged. CARDIOVASCULAR EXAM: S1 and S2, bradycardic but regular. RESPIRATORY EXAM: Clear. ABDOMINAL EXAM: Benign. EXTREMITIES: No clubbing, cyanosis or edema. LABORATORY STUDIES: WBC 6.3, hemoglobin 12, platelet count 258. Chemistry Panel: Sodium 139, potassium 4.4, chloride 103, bicarbonate 32, BUN 32, creatinine 1.0. Magnesium 2.1. Microbiology: Enterococcus faecium, asymptomatic bacteruria. No new imaging. ASSESSMENT/PLAN: This is an 81-year-old female with multifactorial gait abnormalities. PROBLEMS: 1. Multifactorial gait abnormalities and falls. Dr. Reyes's help is greatly appreciated. Possibly a combination of benign positional vertigo, peripheral neuropathy and spinal stenosis. There is also a possibility that the patient has had some mild bradycardia related to beta-luciana use for atrial fibrillation rate control. We have discontinued her beta luciana and started her on zonisamide. We have advised her to walker with a walker. She is working with physical therapy and undergoing vestibular rehab and occupational therapy as well. We will monitor her for an additional 24 hours. If by tomorrow she has not had significant improvement and able to return to assisted living, she will likely benefit from discharge to [facility]. 2. Atrial fibrillation. She is rate controlled with a beta luciana has been discontinued. Will simply monitor. She appears to be in sinus. We are holding anticoagulation given her propensity for falls. 3. Dementia. Continue supportive care. She lives in assisted living, but may likely end up being placed in [facility]. 4. Type 2 diabetes. We are holding her metformin. She is on sliding scale. 5. Peripheral neuropathy. She is on Lyrica and Cymbalta. 6. Pulmonary artery hypertension. She has chronic hypoxic respiratory failure requiring baseline oxygen. 7. Spinal stenosis. Continue with pain medications and supportive care. 8. Hypothyroidism. Continue with Synthroid. 9. Dyslipidemia. Continue statin. 10. Depression. Continue Cymbalta. 11. Deep vein thrombosis (DVT) prophylaxis. Sequentials and thromboembolic deterrent stockings (TEDS). DISPOSITION: Pending physical therapy evaluation.
[2016-09-19] MEDS: PRAVASTATIN 20 MG TAB PO SCH (21:12)
[2016-09-20] MEDS ORDERED: SLF 3 ML SYR IV PRN (01:15)
[2016-09-20 04:45] VITALS: BP 153/65
[2016-09-20] MEDS: LEVOTHYROXINE 0.075 MG TAB (75 MCG) PO SCH (05:05)
[2016-09-20 05:23] LABS: MEAN CORPUSCULAR HEMOGLOBIN 29.6 pg (27.0-33.0); MEAN CORPUSCULAR HGB CONC 31.5 g/dl (32.0-36.5); MEAN CORPUSCULAR VOLUME 93.8 fl (80.0-96.0); RED CELL DISTRIBUTION WIDTH 12.5 % (11.5-14.5); WHITE BLOOD COUNT 6.4 K/mm3 (4.0-10.0)
[2016-09-20 05:44] LABS: CALCIUM LEVEL 8.9 MG/DL (8.8-10.2); CREATININE FOR GFR 1.07 MG/DL (0.55-1.02); GLOMERULAR FILTRATION RATE 52.1 (>32); MAGNESIUM LEVEL 1.7 MG/DL (1.8-2.4); POTASSIUM SERUM 4.3 MEQ/L (3.5-5.1)
[2016-09-20] MEDS ORDERED: SLF 3 ML SYR IV SCH (06:00)
[2016-09-20 08:15] VITALS: BP 153/65
[2016-09-20] MEDS: ZONISAMIDE 25 MG CAP (ZONEGRAN) PO SCH (08:15)
[2016-09-20] MEDS: OLMESARTAN MEDOXOMIL 20 MG TAB (BENICAR) PO SCH (08:15)
[2016-09-20] MEDS: FERROUS SULFATE 325MG TAB PO SCH (08:15)
[2016-09-20] MEDS: PREGABALIN 75 MG CAP(LYRICA) PO SCH (08:15)
[2016-09-20 08:16] VITALS: BP 137/65
[2016-09-20] MEDS: DULoxetine 30 MG CAP (CYMBALTA) PO SCH (08:16)
[2016-09-20] MEDS: HumaLOG INSULIN (NovoLOG) PER UNIT SC SCH ×2 (08:16→12:00)
[2016-09-20] MEDS: SENOKOT S TAB PO SCH (08:16)
[2016-09-20] MEDS ORDERED: ZONE25CA5 PO (10:37)
--- NOTE | 2016-09-21 13:00 | DSES ---
DATE OF ADMISSION: 09/16/2016 DATE OF DISCHARGE: 09/20/2016 DISCHARGE DIAGNOSIS: Multiple falls. SECONDARY DIAGNOSES: 1. Multifactorial gait abnormalities. 2. Vertigo. 3. Symptomatic bradycardia. 4. Medication adverse effect. 5. Atrial fibrillation. 6. Dementia. 7. Type 2 diabetes. 8. Peripheral neuropathy. 9. Pulmonary hypertension. 10. Spinal stenosis. 11. Hypothyroidism. 12. Depression. 13. Dyslipidemia. HOSPITAL COURSE: The patient is a 81-year-old female who initially presented with recurrent falls at the assisted living facility. There was initially concern for her neurovascular compromise but MRIs of the brain were unrevealing. Cervical spine CT and maxillofacial CT did not reveal any acute fractures or dislocations. She was seen by Dr. Reyes of neurology who felt that she had a multifactorial gait abnormality related to peripheral neuropathy, benign positional vertigo, spinal stenosis. I also had it put in that when the patient first examined with bradycardia as well as other symptoms predominantly during arising from a seated position but also when turning as well as in the standing position. She was on metoprolol for rate control related to atrial fibrillation, however, this medication has been discontinued as her heart rate was in the 50s. Now her heart is in the 70s. The Xarelto has also been discontinued given that her frequent falls. SUBJECTIVE: This morning the patient reports that she is feeling much better. Feels as though she is comfortable and that her dizziness is completely resolved. She denies any chest pain, shortness of breath, fevers, chills, nausea, vomiting or diarrhea. OBJECTIVE: VITAL SIGNS: Temperature 97.3, pulse 69, respiratory rate 18, blood pressure 153/65, oxygen saturation 97% in room air. GENERAL: She is an elderly female, very pleasant. Sitting up in bed and appears to be in no acute distress. HEENT: She has raccoon eyes and several conjunctival hemorrhage bilaterally. CARDIOVASCULAR: S1, S2 irregularly irregular. RESPIRATORY EXAM: Clear. ABDOMEN: Obese. EXTREMITIES: No clubbing, cyanosis or edema. Numerous ecchymosis. LABORATORY STUDIES: WBC 6.4, hemoglobin 12.7, platelet count 286. Chemistry panel: Sodium 139, potassium 4.3, chloride 106, bicarbonate 28, BUN 33, creatinine 1.0. Microbiology, urine culture was asymptomatic, bacterial positive for Enterococcus faecium. Imaging as outlined above. She had MRA that was unremarkable. MRI revealed no evidence of acute infract or hemorrhage, moderate severe age-related atrophy with diffuse chronic small vessel ischemic change. No change from the prior studies. ASSESSMENT/PLAN: This is an 81-year-old female with multifactorial gait abnormality. PROBLEM: 1. Multifactorial gait abnormality and falls: Dr. Reyes's help was greatly appreciated. The patient was started on zonisamide [place] to be related to peripheral neuropathy, benign positional vertigo and spinal stenosis. There is also the possibility that she was experiencing symptomatic bradycardia from medication adverse affect related to metoprolol, which has been discontinued. At this time, with these measures, the patient symptoms have greatly improved. We are holding her Xarelto in the setting of frequent falls. She can be re-evaluated in the future. 2. Atrial fibrillation: She is rate controlled without any agents at this time. We are holding anticoagulation given her propensity for falls. Can re-evaluate the necessity of both of these in the future. Will monitor her heart rate and watch for rapid ventricular response. 3. Type 2 diabetes: She will resume her metformin upon discharge. 4. Peripheral neuropathy: She is on Lyrica and Cymbalta as well as zonisamide. 5. Peripheral artery hypertension: She has some mild type hypoxic respiratory failure. 6. Spinal stenosis: Continue with medications for supportive care. [facility]. Should her symptoms improve, she may be able to be transferred to assisted living side in the near future. 7. Hypothyroidism: Continue with Synthroid. 8. Dyslipidemia: Continue with statin 9. Depression: Continue with Cymbalta. 10. Deep venous thrombosis (DVT) prophylaxis: Sequentials and thromboembolic deterrent stockings (TEDS). DISPOSITION: The patient is being discharged to alf facility. She will followup with her primary care physician (PCP) within 7 days. Activity as tolerated. Diet is as prior to admission. If gait stability returns, and vertigo resolves, consider return to assisted living and presumption of anticoagulation for atrial fibrillation. The patient's heart rate should be monitored now that she is off metoprolol. She is to follow with Dr. Reyes within 2 weeks. Medications at the time of discharge: - zonisamide 25 mg twice a day - Tylenol #3, one tablet every 4 times daily as needed for pain - Ventolin HFA two puffs inhaled every 4 hours as needed for wheezing - Cymbalta 30 mg twice a day - Esterase one dose vaginally daily at bedtime apply a small amount as needed - ferrous sulfate 325 mg daily - Lasix 20 mg daily - GenTeal mild 0.2% two drops each eye twice a day. - Synthroid 75 mg daily -metformin 500 mg twice a day - Milk of Magnesia 30 mL by mouth daily as needed for constipation. - Myrbetriq 25 mg daily - Benicar 40 mg daily - pravastatin 40 mg nightly - Lyrica 75 m daily The patient is to stop taking Xarelto, metoprolol and Bactrim. Greater than 45 minutes on organizing disposition. MTDD
== END 2016-09-20 13:09 | DRG 74 ==
LOC: M ED 14:51 → M ED INP 16:27 → M PCU 22:37
PROVIDERS: ADMIT Hospitalist; ATTEND Internal Medicine
DX: E11.42 Type 2 diabetes mellitus with diabetic polyneuropathy (principal); R29.6 Repeated falls; H81.10 Benign paroxysmal vertigo, unspecified ear; E78.5 Hyperlipidemia, unspecified; F32.9 Major depressive disorder, single episode, unspecified; E03.9 Hypothyroidism, unspecified; I48.91 Unspecified atrial fibrillation; R26.89 Other abnormalities of gait and mobility; G62.9 Polyneuropathy, unspecified; R00.1 Bradycardia, unspecified; T44.7X5A Adverse effect of beta-adrenoreceptor antagonists, initial encounter; Z79.899 Other long term (current) drug therapy; Z91.040 Latex allergy status; Z91.038 Other insect allergy status; F03.90 Unspecified dementia, unspecified severity, without behavioral disturbance, psychotic disturbance, mood disturbance, and anxiety; Z87.891 Personal history of nicotine dependence; M48.02 Spinal stenosis, cervical region; I27.2 Other secondary pulmonary hypertension; M48.07 Spinal stenosis, lumbosacral region

== ENCOUNTER → 2016-09-24 | Outpatient (REF) ==
[~2016-09-24] MED LIST changes: +ACET30TAB PO; +ESTR1CRE PV; +ESTRACE; +GENT0.2D2 OU; +LEVO75TA4 PO; +MILKSUS PO; +MOM30SS PO; +XARE15TA PO; +ZONE25CA5 PO
[2016-09-24 10:05] LABS: CREATININE FOR GFR 1.03 MG/DL (0.55-1.02); GLOMERULAR FILTRATION RATE 54.5 (>32); POTASSIUM SERUM 4.6 MEQ/L (3.5-5.1)
[2016-09-24 10:14] LABS: MEAN CORPUSCULAR HEMOGLOBIN 29.5 pg (27.0-33.0); MEAN CORPUSCULAR HGB CONC 31.8 g/dl (32.0-36.5); MEAN CORPUSCULAR VOLUME 92.5 fl (80.0-96.0); RED CELL DISTRIBUTION WIDTH 12.9 % (11.5-14.5); WHITE BLOOD COUNT 7.6 K/mm3 (4.0-10.0)
== END ==
PROVIDERS: ATTEND Internal Medicine
DX: I10 Essential (primary) hypertension (principal); D64.9 Anemia, unspecified

== ENCOUNTER → 2016-10-01 | Outpatient (REF) ==
[2016-10-01 10:54] LABS: MEAN CORPUSCULAR HGB CONC 31.7 g/dl (32.0-36.5); MEAN CORPUSCULAR VOLUME 91.7 fl (80.0-96.0); RED CELL DISTRIBUTION WIDTH 13.2 % (11.5-14.5); WHITE BLOOD COUNT 6.4 K/mm3 (4.0-10.0)
[2016-10-01 11:08] LABS: CALCIUM LEVEL 9.2 MG/DL (8.8-10.2); CREATININE FOR GFR 0.97 MG/DL (0.55-1.02); GLOMERULAR FILTRATION RATE 58.4 (>32); POTASSIUM SERUM 4.4 MEQ/L (3.5-5.1)
== END ==
PROVIDERS: ATTEND Internal Medicine
DX: D64.9 Anemia, unspecified (principal); I10 Essential (primary) hypertension

== ENCOUNTER → 2016-10-16 | Outpatient (REF) ==
[2016-10-16 11:11] LABS: MEAN CORPUSCULAR HEMOGLOBIN 29.6 pg (27.0-33.0); MEAN CORPUSCULAR HGB CONC 31.7 g/dl (32.0-36.5); MEAN CORPUSCULAR VOLUME 93.5 fl (80.0-96.0); WHITE BLOOD COUNT 6.4 K/mm3 (4.0-10.0)
[2016-10-16 11:43] LABS: CALCIUM LEVEL 9.6 MG/DL (8.8-10.2); CREATININE FOR GFR 1.02 MG/DL (0.55-1.02); GLOMERULAR FILTRATION RATE 55.1 (>32); POTASSIUM SERUM 4.3 MEQ/L (3.5-5.1)
== END ==
PROVIDERS: ATTEND Internal Medicine
DX: D64.9 Anemia, unspecified (principal); I10 Essential (primary) hypertension

== ENCOUNTER → 2016-11-02 | Outpatient (REF) | payer MEDICARE ==
[~2016-11-02] MED LIST changes: -ACET-654 PO; +ACET1TAB17 PO; -AUGM875T27 PO; +AUGM875T28 PO; +BENI40TA26 PO; -BENI40TA3 PO; +CIPR-249 PO; -CIPR500T89 PO; +FERR1TAB8 PO; -FERR325T PO; -METF500T PO; +METF500T13 PO; -METO-207 PO; +METO1TAB7 PO; -MUCI600T34 PO; +MUCI600T37 PO; -ULTR50TA PO; +ULTR50TA8 PO; -VITA100037 PO; +VITA100067 PO
== END ==
PROVIDERS: ATTEND Internal Medicine
DX: R30.9 Painful micturition, unspecified (principal)

== ENCOUNTER → 2016-11-12 | Outpatient (REF) ==
[2016-11-12 11:50] LABS: MEAN CORPUSCULAR HEMOGLOBIN 29.4 pg (27.0-33.0); MEAN CORPUSCULAR VOLUME 91.7 fl (80.0-96.0); RED CELL DISTRIBUTION WIDTH 12.6 % (11.5-14.5); WHITE BLOOD COUNT 6.4 K/mm3 (4.0-10.0)
[2016-11-12 12:32] LABS: ANION GAP 7 MEQ/L (8-16); BLOOD UREA NITROGEN 20 MG/DL (7-18); CARBON DIOXIDE LEVEL 29 MEQ/L (21-32); CHLORIDE LEVEL 103 MEQ/L (98-107); CREATININE FOR GFR 0.91 MG/DL (0.55-1.02); GLOMERULAR FILTRATION RATE > 60.0 (>32); GLUCOSE, FASTING 207 MG/DL (83-110); SODIUM LEVEL 139 MEQ/L (136-145)
== END ==
PROVIDERS: ATTEND Internal Medicine
DX: D64.9 Anemia, unspecified (principal)

== ENCOUNTER → 2016-11-14 | Outpatient (REF) | payer MEDICARE | PROVIDERS: ATTEND Internal Medicine | DX: R53.83 Other fatigue (principal) ==

== ENCOUNTER → 2016-12-03 | Outpatient (REF) | payer MEDICARE | PROVIDERS: ATTEND Internal Medicine | DX: E11.9 Type 2 diabetes mellitus without complications (principal); I10 Essential (primary) hypertension ==

== ENCOUNTER → 2016-12-04 | Outpatient (REF) | payer MEDICARE | PROVIDERS: ATTEND Internal Medicine | DX: E55.9 Vitamin D deficiency, unspecified (principal) ==

== ENCOUNTER → 2016-12-10 | Outpatient (REF) | payer MEDICARE ==
[2016-12-10 11:02] LABS: MEAN CORPUSCULAR HEMOGLOBIN 28.5 pg (27.0-33.0); MEAN CORPUSCULAR VOLUME 89.1 fl (80.0-96.0); RED CELL DISTRIBUTION WIDTH 12.7 % (11.5-14.5); WHITE BLOOD COUNT 6.9 K/mm3 (4.0-10.0)
[2016-12-10 11:12] LABS: CALCIUM LEVEL 9.7 MG/DL (8.8-10.2); CREATININE FOR GFR 0.98 MG/DL (0.55-1.02); GLOMERULAR FILTRATION RATE 57.7 (>32); POTASSIUM SERUM 3.8 MEQ/L (3.5-5.1)
== END ==
PROVIDERS: ATTEND Internal Medicine
DX: D64.9 Anemia, unspecified (principal)

== ENCOUNTER → 2017-02-11 | Outpatient (REF) | payer MEDICARE | PROVIDERS: ATTEND Internal Medicine | DX: E55.9 Vitamin D deficiency, unspecified (principal) ==

== ENCOUNTER → 2017-02-19 | Outpatient (REF) | payer MEDICARE ==
[2017-02-19 11:17] LABS: MEAN CORPUSCULAR HEMOGLOBIN 27.3 pg (27.0-33.0); MEAN CORPUSCULAR HGB CONC 30.7 g/dl (32.0-36.5); MEAN CORPUSCULAR VOLUME 89.1 fl (80.0-96.0); RED CELL DISTRIBUTION WIDTH 13.9 % (11.5-14.5); WHITE BLOOD COUNT 7.9 10^3/uL (4.0-10.0)
== END ==
PROVIDERS: ATTEND Internal Medicine
DX: N93.9 Abnormal uterine and vaginal bleeding, unspecified (principal)

== ENCOUNTER → 2017-03-28 | Outpatient (REF) | payer MEDICARE ==
[~2017-03-28] MED LIST changes: +ACET650S3 PR; +ALBU83IN INH; +ASPI81CH PO; +BISA10SU4 PR; +BRIL90TA PO; +D3 A1000 PO; +FLEEENE4 PR; +METO1TAB32 PO; +OPTI0.5D5 OU; +PANT40TA2 PO; +PREG50CA PO; +PREP1CRE PR; +REFRESH OPTIVE OU; +TYLE325T5 PO; +TYLE500T78 PO; +VITA200015 PO; +[UNRECOGNIZED DRUG - OTHER] PR
[2017-03-28 10:40] LABS: MEAN CORPUSCULAR HEMOGLOBIN 27.5 pg (27.0-33.0); MEAN CORPUSCULAR HGB CONC 30.5 g/dl (32.0-36.5); MEAN CORPUSCULAR VOLUME 90.3 fl (80.0-96.0); PLATELET COUNT, AUTOMATED 276 10^3/uL (150-450); WHITE BLOOD COUNT 8.1 10^3/uL (4.0-10.0)
== END ==
PROVIDERS: ATTEND Internal Medicine
DX: R19.5 Other fecal abnormalities (principal)

== ENCOUNTER → 2017-03-29 | Outpatient (REF) | payer MEDICARE ==
[2017-03-29 07:56] LABS: MEAN CORPUSCULAR HEMOGLOBIN 27.5 pg (27.0-33.0); MEAN CORPUSCULAR HGB CONC 30.2 g/dl (32.0-36.5); MEAN CORPUSCULAR VOLUME 91.1 fl (80.0-96.0); PLATELET COUNT, AUTOMATED 291 10^3/uL (150-450); RED CELL DISTRIBUTION WIDTH 13.7 % (11.5-14.5); WHITE BLOOD COUNT 8.1 10^3/uL (4.0-10.0)
== END ==
PROVIDERS: ATTEND Internal Medicine
DX: D64.9 Anemia, unspecified (principal)

== ENCOUNTER → 2017-03-31 | Outpatient (REF) | payer MEDICARE ==
[~2017-03-31] MED LIST changes: -ACET650S3 PR; -ALBU83IN INH; -ASPI81CH PO; -BISA10SU4 PR; -BRIL90TA PO; -D3 A1000 PO; -FLEEENE4 PR; -METO1TAB32 PO; -OPTI0.5D5 OU; -PANT40TA2 PO; -PREG50CA PO; -PREP1CRE PR; -REFRESH OPTIVE OU; -TYLE325T5 PO; -TYLE500T78 PO; -VITA200015 PO; -[UNRECOGNIZED DRUG - OTHER] PR
[2017-03-31 10:32] LABS: MEAN CORPUSCULAR HEMOGLOBIN 26.8 pg (27.0-33.0); MEAN CORPUSCULAR HGB CONC 30.2 g/dl (32.0-36.5); MEAN CORPUSCULAR VOLUME 88.7 fl (80.0-96.0); PLATELET COUNT, AUTOMATED 338 10^3/uL (150-450); RED CELL DISTRIBUTION WIDTH 13.6 % (11.5-14.5); WHITE BLOOD COUNT 8.7 10^3/uL (4.0-10.0)
== END ==
PROVIDERS: ATTEND Internal Medicine
DX: R19.5 Other fecal abnormalities (principal)

== ENCOUNTER → 2017-04-07 | Outpatient (REF) | payer MEDICARE ==
[~2017-04-07] MED LIST changes: +ALBU83IN INH; +D3 A1000 PO; +PANT40TA2 PO; +PREG50CA PO; +REFRESH OPTIVE OU; +TYLE500T78 PO; +[UNRECOGNIZED DRUG - OTHER] PR
[2017-04-07 13:17] LABS: MEAN CORPUSCULAR HEMOGLOBIN 27.5 pg (27.0-33.0); MEAN CORPUSCULAR HGB CONC 31.6 g/dl (32.0-36.5); MEAN CORPUSCULAR VOLUME 86.9 fl (80.0-96.0); PLATELET COUNT, AUTOMATED 416 10^3/uL (150-450); RED CELL DISTRIBUTION WIDTH 14.1 % (11.5-14.5); WHITE BLOOD COUNT 8.9 10^3/uL (4.0-10.0)
[2017-04-07 13:18] LABS: RETIC HEMOGLOBIN EQUIVALENT 24.9 pg (24-36); RETICULOCYTE % 2.9 % (0.5-1.5)
[2017-04-07 14:00] LABS: PERCENT SATURATION 4.2 % (13.2-45.0)
== END ==
PROVIDERS: ATTEND Internal Medicine
DX: D64.9 Anemia, unspecified (principal)

== ENCOUNTER 2017-04-08 13:22 | Emergency (ER) | payer MEDICARE, MEDICAID ==
[~2017-04-08] VITALS: Ht 165.1 cm; Wt 84.0 kg
[~2017-04-08 13:22] MED LIST changes: -ALBU83IN INH; -D3 A1000 PO; -PANT40TA2 PO; -PREG50CA PO; -REFRESH OPTIVE OU; -TYLE500T78 PO; -[UNRECOGNIZED DRUG - OTHER] PR
[2017-04-08] MEDS ORDERED: ASPIRIN 81 MG CHEW TABLET PO ONE (13:30)
[2017-04-08] MEDS ORDERED: REFRESH OPTIVE OU (13:57)
[2017-04-08] MEDS ORDERED: D3 A1000 PO (13:57)
[2017-04-08] MEDS ORDERED: TYLE500T78 PO (13:57)
[2017-04-08] MEDS ORDERED: PREG50CA PO (13:57)
[2017-04-08] MEDS ORDERED: ALBU83IN INH (13:57)
[2017-04-08] MEDS ORDERED: PANT40TA2 PO (13:57)
[2017-04-08] MEDS ORDERED: [UNRECOGNIZED DRUG - OTHER] PR (13:57)
[2017-04-08 14:00] LABS: BASO % 0.3 % (0.0-1.0); EOS # 0.1 10^3/uL (0.0-0.50); EOS % 1.2 % (0.0-3.0); IMMATURE GRANULOCYTE % 0.4 % (0-0); MEAN CORPUSCULAR HEMOGLOBIN 26.9 pg (27.0-33.0); MEAN CORPUSCULAR HGB CONC 30.3 g/dl (32.0-36.5); MEAN CORPUSCULAR VOLUME 88.6 fl (80.0-96.0); MONO # 1.1 10^3/uL (0.0-0.8); MONO % 9.4 % (0.0-5.0); NEUTROPHILS % 79.7 % (36.0-66.0); PLATELET COUNT, AUTOMATED 373 10^3/uL (150-450); RED CELL DISTRIBUTION WIDTH 13.5 % (11.5-14.5); WHITE BLOOD COUNT 11.3 10^3/uL (4.0-10.0)
[2017-04-08 14:24] LABS: ALBUMIN 2.8 GM/DL (3.2-5.2); ALKALINE PHOSPHATASE 145 U/L (45-117); ALT/SGPT 17 U/L (12-78); ANION GAP 6 MEQ/L (8-16); AST/SGOT 15 U/L (7-37); BILIRUBIN,DIRECT < 0.1 MG/DL (0.0-0.2); BILIRUBIN,TOTAL 0.3 MG/DL (0.2-1.0); BLOOD UREA NITROGEN 19 MG/DL (7-18); CALCIUM LEVEL 9.5 MG/DL (8.8-10.2); CARBON DIOXIDE LEVEL 30 MEQ/L (21-32); CHLORIDE LEVEL 105 MEQ/L (98-107); CREATININE FOR GFR 1.16 MG/DL (0.55-1.02); GLOMERULAR FILTRATION RATE 47.4 (>32); GLUCOSE, FASTING 158 MG/DL (83-110); POTASSIUM SERUM 4.3 MEQ/L (3.5-5.1); SODIUM LEVEL 141 MEQ/L (136-145); TOTAL PROTEIN 6.8 GM/DL (6.4-8.2)
--- NOTE | 2017-04-08 14:36 | REP ---
Chest one-view HISTORY: Chest pain Comparison: 09/16/2016 There is elevation of the right hemidiaphragm. Atelectasis or scar. The heart is normal in size. The pulmonary vasculature is normal in appearance. Impression: Bibasilar atelectasis or scar. Signed by Colby Adam MD 04/08/2017 02:27 P
--- NOTE | 2017-04-08 15:43 | ECGEPIP ---
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
[2017-04-08] MEDS ORDERED: HEPARIN DRIP 25,000 UNITS in APPROPRIATE DILUENT 1 EA IV SCH (16:01)
[2017-04-08] MEDS ORDERED: HEPARIN SOD (PORCINE) 5000 UNITS/ML VIAL IV ONE (16:15)
[2017-04-08 16:46] LABS: INR 1.03
[2017-04-08 17:33] VITALS: BP 136/71
[2017-04-15] MEDS ORDERED: BISA10SU4 PR (21:28)
[2017-04-15] MEDS ORDERED: METO1TAB32 PO (21:28)
[2017-04-15] MEDS ORDERED: OPTI0.5D5 OU (21:28)
[2017-04-15] MEDS ORDERED: ACET650S3 PR (21:28)
[2017-04-15] MEDS ORDERED: VITA200015 PO (21:28)
[2017-04-15] MEDS ORDERED: TYLE325T5 PO (21:28)
[2017-04-15] MEDS ORDERED: PREP1CRE PR (21:28)
[2017-04-15] MEDS ORDERED: ASPI81CH PO (21:28)
[2017-04-15] MEDS ORDERED: AUGM875T28 PO (21:28)
[2017-04-15] MEDS ORDERED: FLEEENE4 PR (21:28)
[2017-04-15] MEDS ORDERED: BRIL90TA PO (21:28)
== END 2017-04-08 17:34 | disposition short-term general hospital (02) ==
LOC: M ED 13:22 → EDBD 13:22 → M ED 17:34
DX: I21.4 Non-ST elevation (NSTEMI) myocardial infarction (principal); R06.02 Shortness of breath; E11.9 Type 2 diabetes mellitus without complications; I10 Essential (primary) hypertension; I48.91 Unspecified atrial fibrillation; G62.9 Polyneuropathy, unspecified; M19.90 Unspecified osteoarthritis, unspecified site; N32.9 Bladder disorder, unspecified; Z79.899 Other long term (current) drug therapy; Z79.84 Long term (current) use of oral hypoglycemic drugs; Z88.8 Allergy status to other drugs, medicaments and biological substances; Z91.030 Bee allergy status; Z91.041 Radiographic dye allergy status; Z87.891 Personal history of nicotine dependence

== ENCOUNTER → 2017-04-14 | Outpatient (REF) | payer MEDICARE, MEDICAID ==
[~2017-04-14] MED LIST changes: +ACET650S3 PR; +ALBU83IN INH; +ASPI81CH PO; +BISA10SU4 PR; +BRIL90TA PO; +D3 A1000 PO; +FLEEENE4 PR; +METO1TAB32 PO; +OPTI0.5D5 OU; +PANT40TA2 PO; +PREG50CA PO; +PREP1CRE PR; +REFRESH OPTIVE OU; +TYLE325T5 PO; +TYLE500T78 PO; +VITA200015 PO; +[UNRECOGNIZED DRUG - OTHER] PR
[2017-04-14 12:25] LABS: MEAN CORPUSCULAR HEMOGLOBIN 26.5 pg (27.0-33.0); MEAN CORPUSCULAR HGB CONC 30.1 g/dl (32.0-36.5); PLATELET COUNT, AUTOMATED 304 10^3/uL (150-450); RED CELL DISTRIBUTION WIDTH 13.5 % (11.5-14.5); WHITE BLOOD COUNT 11.1 10^3/uL (4.0-10.0)
== END ==
PROVIDERS: ATTEND Internal Medicine
DX: D64.9 Anemia, unspecified (principal)

== ENCOUNTER → 2017-04-21 | Outpatient (REF) | payer MEDICARE, MEDICAID ==
[2017-04-21 13:17] LABS: CALCIUM LEVEL 9.8 MG/DL (8.8-10.2); CREATININE FOR GFR 1.2 MG/DL (0.55-1.02); GLOMERULAR FILTRATION RATE 45.6 (>32); POTASSIUM SERUM 4.8 MEQ/L (3.5-5.1)
== END ==
PROVIDERS: ATTEND Internal Medicine
DX: D64.9 Anemia, unspecified (principal); I10 Essential (primary) hypertension

== ENCOUNTER → 2017-04-25 | Outpatient (REF) | payer MEDICARE, MEDICAID ==
[2017-04-25 12:39] LABS: MEAN CORPUSCULAR HGB CONC 29.4 g/dl (32.0-36.5); MEAN CORPUSCULAR VOLUME 88.5 fl (80.0-96.0); PLATELET COUNT, AUTOMATED 397 10^3/uL (150-450); RED CELL DISTRIBUTION WIDTH 13.3 % (11.5-14.5); WHITE BLOOD COUNT 10.2 10^3/uL (4.0-10.0)
[2017-04-25 13:34] LABS: CALCIUM LEVEL 9.7 MG/DL (8.8-10.2); CREATININE FOR GFR 1.19 MG/DL (0.55-1.02); POTASSIUM SERUM 4.5 MEQ/L (3.5-5.1)
[2017-04-30 09:29] LABS: MEAN CORPUSCULAR HEMOGLOBIN 26.4 pg (27.0-33.0); MEAN CORPUSCULAR HGB CONC 29.8 g/dl (32.0-36.5); MEAN CORPUSCULAR VOLUME 88.5 fl (80.0-96.0); PLATELET COUNT, AUTOMATED 353 10^3/uL (150-450); RED CELL DISTRIBUTION WIDTH 13.4 % (11.5-14.5); WHITE BLOOD COUNT 8.7 10^3/uL (4.0-10.0)
[2017-04-30 09:50] LABS: CALCIUM LEVEL 9.3 MG/DL (8.8-10.2); CREATININE FOR GFR 1.25 MG/DL (0.55-1.02); GLOMERULAR FILTRATION RATE 43.5 (>32); POTASSIUM SERUM 4.3 MEQ/L (3.5-5.1)
== END ==
PROVIDERS: ATTEND Internal Medicine
DX: I25.9 Chronic ischemic heart disease, unspecified (principal)

== ENCOUNTER → 2017-04-30 | Outpatient (REF) | payer MEDICARE, SELFPAY, MEDICAID | DX: I25.10 Atherosclerotic heart disease of native coronary artery without angina pectoris (principal); Z53.9 Procedure and treatment not carried out, unspecified reason | CPT/HCPCS: 80048 ==

== ENCOUNTER → 2017-05-08 | Outpatient (REF) | payer MEDICARE, MEDICAID ==
[2017-05-08 13:20] LABS: ANION GAP 6 MEQ/L (8-16); BLOOD UREA NITROGEN 32 MG/DL (7-18); CALCIUM LEVEL 9.6 MG/DL (8.8-10.2); CARBON DIOXIDE LEVEL 33 MEQ/L (21-32); CHLORIDE LEVEL 104 MEQ/L (98-107); CREATININE FOR GFR 1.15 MG/DL (0.55-1.02); GLOMERULAR FILTRATION RATE 47.9 (>32); GLUCOSE, FASTING 216 MG/DL (83-110); POTASSIUM SERUM 4.1 MEQ/L (3.5-5.1); SODIUM LEVEL 143 MEQ/L (136-145)
== END ==
DX: I50.9 Heart failure, unspecified (principal)
CPT/HCPCS: 80048

== ENCOUNTER → 2017-05-21 | Outpatient (REF) ==
[2017-05-21 10:55] LABS: HEMATOCRIT 36.3 % (36.0-47.0); HEMOGLOBIN 10.5 g/dl (12.0-16.0); MEAN CORPUSCULAR HEMOGLOBIN 25.2 pg (27.0-33.0); MEAN CORPUSCULAR HGB CONC 28.9 g/dl (32.0-36.5); MEAN CORPUSCULAR VOLUME 87.3 fl (80.0-96.0); PLATELET COUNT, AUTOMATED 347 10^3/uL (150-450); RED BLOOD COUNT 4.16 10^6/uL (4.00-5.40); RED CELL DISTRIBUTION WIDTH 14.1 % (11.5-14.5); WHITE BLOOD COUNT 8.3 10^3/uL (4.0-10.0)
[2017-05-21 11:15] LABS: ANION GAP 5 MEQ/L (8-16); BLOOD UREA NITROGEN 25 MG/DL (7-18); CALCIUM LEVEL 9.2 MG/DL (8.8-10.2); CARBON DIOXIDE LEVEL 35 MEQ/L (21-32); CHLORIDE LEVEL 102 MEQ/L (98-107); CREATININE FOR GFR 1.02 MG/DL (0.55-1.02); GLUCOSE, FASTING 145 MG/DL (83-110); POTASSIUM SERUM 4.2 MEQ/L (3.5-5.1); SODIUM LEVEL 142 MEQ/L (136-145)
== END ==
DX: D64.9 Anemia, unspecified (principal)

== ENCOUNTER → 2017-06-18 | Outpatient (REF) | payer MEDICARE, MEDICAID ==
[2017-06-18 11:12] LABS: ESTIMATED AVERAGE GLUCOSE 137 MG/DL (60-110); HEMOGLOBIN A1c 6.4 %
== END ==
DX: E11.9 Type 2 diabetes mellitus without complications (principal); D64.9 Anemia, unspecified
CPT/HCPCS: 83036

== ENCOUNTER → 2017-07-15 | Outpatient (REF) | payer MEDICARE, MEDICAID ==
[2017-07-15 09:59] LABS: HEMOGLOBIN 11.7 g/dl (12.0-16.0); MEAN CORPUSCULAR HEMOGLOBIN 24.1 pg (27.0-33.0); MEAN CORPUSCULAR HGB CONC 29.3 g/dl (32.0-36.5); MEAN CORPUSCULAR VOLUME 82.5 fl (80.0-96.0); PLATELET COUNT, AUTOMATED 297 10^3/uL (150-450); RED BLOOD COUNT 4.85 10^6/uL (4.00-5.40); RED CELL DISTRIBUTION WIDTH 15.6 % (11.5-14.5); WHITE BLOOD COUNT 7.9 10^3/uL (4.0-10.0)
== END ==
DX: E03.9 Hypothyroidism, unspecified (principal); I25.10 Atherosclerotic heart disease of native coronary artery without angina pectoris
CPT/HCPCS: 84443

== ENCOUNTER → 2017-08-06 | Outpatient (REF) | payer MEDICARE, MEDICAID ==
[2017-08-06 13:55] LABS: HEMATOCRIT 41.9 % (36.0-47.0); HEMOGLOBIN 12.7 g/dl (12.0-15.5); MEAN CORPUSCULAR HGB CONC 30.3 g/dl (32.0-36.5); MEAN CORPUSCULAR VOLUME 82.5 fl (80.0-96.0); PLATELET COUNT, AUTOMATED 274 10^3/uL (150-450); RED BLOOD COUNT 5.08 10^6/uL (4.00-5.40); RED CELL DISTRIBUTION WIDTH 16.4 % (11.5-14.5); WHITE BLOOD COUNT 7.4 10^3/uL (4.0-10.0)
[2017-08-06 14:21] LABS: ANION GAP 7 MEQ/L (8-16); BLOOD UREA NITROGEN 22 MG/DL (7-18); CALCIUM LEVEL 9.3 MG/DL (8.8-10.2); CARBON DIOXIDE LEVEL 33 MEQ/L (21-32); CHLORIDE LEVEL 102 MEQ/L (98-107); CREATININE FOR GFR 0.98 MG/DL (0.55-1.30); GLOMERULAR FILTRATION RATE 57.6 (>32); GLUCOSE, FASTING 137 MG/DL (70-100); SODIUM LEVEL 142 MEQ/L (136-145)
[2017-08-06 18:06] LABS: APPEARANCE, URINE HAZY (CLEAR); BACTERIA, URINE AUTO 1+ (NEGATIVE); BILIRUBIN, URINE AUTO NEGATIVE (NEGATIVE); BLOOD, URINE BLOOD NEGATIVE (NEGATIVE); COLOR, URINE YELLOW (YELLOW); GLUCOSE, URINE (UA) AUTO NEGATIVE (NEGATIVE); KETONE, URINE AUTO NEGATIVE (NEGATIVE); LEUKOCYTE ESTERASE, URINE AUTO 1+ (NEGATIVE); MUCUS, URINE SMALL (NEGATIVE); NITRITE, URINE AUTO POSITIVE (NEGATIVE); PROTEIN, URINE AUTO NEGATIVE (NEGATIVE); RBC, URINE AUTO 1 /HPF (0-3); SPECIFIC GRAVITY URINE AUTO 1.009 (1.002-1.035); SQUAMOUS EPITHELIAL CELL UR AU 0 /HPF (0-6); UROBILINOGEN, URINE AUTO 0.2 mg/dL (0.0-2.0); WBC, URINE AUTO 18 /HPF (0-3)
== END ==
DX: R35.0 Frequency of micturition (principal)
CPT/HCPCS: 80048

== ENCOUNTER 2017-09-05 09:46 | Day surgery (SDC) | payer MEDICARE, MEDICAID ==
[2017-09-05] MEDS: NS 1,000 ML IV (10:00)
[2017-09-05] MEDS ORDERED: LIDOCAINE 2% INJ 100 MG/5 ML SDV (FOR ANES.) As Ordered (10:54)
[2017-09-05] MEDS ORDERED: fentaNYL 100 MCG/2 ML INJECTION (J3010) As Ordered (10:54)
[2017-09-05] MEDS ORDERED: PROPOFOL 200 MG/20 ML VIAL As Ordered ×2 (10:54→10:55)
== END 2017-09-05 12:05 | disposition home or self-care (01) ==
LOC: M OPP 09:46
DX: K29.60 Other gastritis without bleeding (principal); K31.89 Other diseases of stomach and duodenum; K31.7 Polyp of stomach and duodenum; D62 Acute posthemorrhagic anemia; K26.3 Acute duodenal ulcer without hemorrhage or perforation; I10 Essential (primary) hypertension; E78.00 Pure hypercholesterolemia, unspecified; E03.9 Hypothyroidism, unspecified; K57.30 Diverticulosis of large intestine without perforation or abscess without bleeding; K21.9 Gastro-esophageal reflux disease without esophagitis; E55.9 Vitamin D deficiency, unspecified; Z79.82 Long term (current) use of aspirin; Z79.899 Other long term (current) drug therapy; Z88.8 Allergy status to other drugs, medicaments and biological substances; Z91.041 Radiographic dye allergy status; Z91.030 Bee allergy status
CPT/HCPCS: 43239

== ENCOUNTER → 2017-09-09 | Outpatient (REF) | payer MEDICARE, MEDICAID ==
[2017-09-09 09:26] LABS: HEMATOCRIT 43.4 % (36.0-47.0); MEAN CORPUSCULAR HEMOGLOBIN 24.4 pg (27.0-33.0); MEAN CORPUSCULAR VOLUME 81.6 fl (80.0-96.0); PLATELET COUNT, AUTOMATED 303 10^3/uL (150-450); RED BLOOD COUNT 5.32 10^6/uL (4.00-5.40); RED CELL DISTRIBUTION WIDTH 16.4 % (11.5-14.5); WHITE BLOOD COUNT 7.2 10^3/uL (4.0-10.0)
[2017-09-09 11:00] LABS: ESTIMATED AVERAGE GLUCOSE 163 MG/DL (60-110); HEMOGLOBIN A1c 7.3 %
[2017-09-09 17:52] LABS: ANION GAP 4 MEQ/L (8-16); BLOOD UREA NITROGEN 20 MG/DL (7-18); CALCIUM LEVEL 9.7 MG/DL (8.8-10.2); CARBON DIOXIDE LEVEL 35 MEQ/L (21-32); CHLORIDE LEVEL 102 MEQ/L (98-107); CREATININE FOR GFR 0.88 MG/DL (0.55-1.30); GLOMERULAR FILTRATION RATE > 60.0 (>32); GLUCOSE, FASTING 113 MG/DL (70-100); POTASSIUM SERUM 3.9 MEQ/L (3.5-5.1); SODIUM LEVEL 141 MEQ/L (136-145)
== END ==
DX: D64.9 Anemia, unspecified (principal); I25.10 Atherosclerotic heart disease of native coronary artery without angina pectoris; I10 Essential (primary) hypertension; Z79.899 Other long term (current) drug therapy
CPT/HCPCS: 83036

== ENCOUNTER → 2017-09-10 | Outpatient (REF) | DX: R30.0 Dysuria (principal) ==

== ENCOUNTER → 2017-10-14 | Outpatient (REF) ==
[2017-10-14 10:18] LABS: ANION GAP 5 MEQ/L (8-16); BLOOD UREA NITROGEN 24 MG/DL (7-18); CALCIUM LEVEL 9.2 MG/DL (8.8-10.2); CARBON DIOXIDE LEVEL 34 MEQ/L (21-32); CHLORIDE LEVEL 104 MEQ/L (98-107); CREATININE FOR GFR 0.85 MG/DL (0.55-1.30); GLOMERULAR FILTRATION RATE > 60.0 (>32); GLUCOSE, FASTING 153 MG/DL (70-100); POTASSIUM SERUM 3.8 MEQ/L (3.5-5.1); SODIUM LEVEL 143 MEQ/L (136-145)
== END ==
DX: D64.9 Anemia, unspecified (principal); I10 Essential (primary) hypertension

== ENCOUNTER → 2017-11-03 | Outpatient (REF) ==
[2017-11-03 12:22] LABS: HEMOGLOBIN 12.1 g/dl (12.0-15.5); MEAN CORPUSCULAR HGB CONC 30.3 g/dl (32.0-36.5); MEAN CORPUSCULAR VOLUME 85.8 fl (80.0-96.0); PLATELET COUNT, AUTOMATED 316 10^3/uL (150-450); RED BLOOD COUNT 4.66 10^6/uL (4.00-5.40); RED CELL DISTRIBUTION WIDTH 15.2 % (11.5-14.5); WHITE BLOOD COUNT 8.7 10^3/uL (4.0-10.0)
== END ==
DX: R05 Cough (principal); R09.81 Nasal congestion

== ENCOUNTER → 2017-12-19 | Outpatient (REF) ==
[2017-12-19 10:44] LABS: ESTIMATED AVERAGE GLUCOSE 151 MG/DL (60-110); HEMOGLOBIN A1c 6.9 %
== END ==
DX: D64.9 Anemia, unspecified (principal); I10 Essential (primary) hypertension

== ENCOUNTER 2018-01-05 09:04 | Emergency (ER) | payer MEDICARE, MEDICAID ==
[2018-01-05] MEDS: METOPROLOL SUCC *XL* 25MG TAB (TopROL *XL*) PO (09:30)
[2018-01-05] MEDS: METOPROLOL 5 MG/5 ML VIAL IV ×3 (09:35→09:50)
[2018-01-05 09:38] LABS: BASO % 0.5 % (0.0-1.0); EOS # 0.3 10^3/uL (0.0-0.50); EOS % 3.4 % (0.0-3.0); HEMATOCRIT 35.2 % (36.0-47.0); HEMOGLOBIN 10.3 g/dl (12.0-15.5); IMMATURE GRANULOCYTE % 0.4 % (0-3.0); LYMPH # 1.1 10^3/uL (1.5-4.5); LYMPH % 13.2 % (24.0-44.0); MEAN CORPUSCULAR HEMOGLOBIN 23.7 pg (27.0-33.0); MEAN CORPUSCULAR HGB CONC 29.3 g/dl (32.0-36.5); MEAN CORPUSCULAR VOLUME 80.9 fl (80.0-96.0); MONO # 0.8 10^3/uL (0.0-0.8); MONO % 10.2 % (0.0-5.0); NEUTROPHILS % 72.3 % (36.0-66.0); PLATELET COUNT, AUTOMATED 305 10^3/uL (150-450); RED BLOOD COUNT 4.35 10^6/uL (4.00-5.40); RED CELL DISTRIBUTION WIDTH 14.1 % (11.5-14.5); WHITE BLOOD COUNT 8.2 10^3/uL (4.0-10.0)
[2018-01-05 09:48] LABS: INR 1.82; PROTHROMBIN TIME 21.4 SECONDS (12.1-14.4)
[2018-01-05 09:49] LABS: PARTIAL THROMBOPLASTIN TIME 34.1 SECONDS (25.4-37.6)
[2018-01-05 10:46] LABS: ANION GAP 7 MEQ/L (8-16); BLOOD UREA NITROGEN 26 MG/DL (7-18); CALCIUM LEVEL 9.6 MG/DL (8.8-10.2); CARBON DIOXIDE LEVEL 28 MEQ/L (21-32); CHLORIDE LEVEL 107 MEQ/L (98-107); CPK CREATINE PHOSPHOKINASE 24 U/L (26-192); CREATININE FOR GFR 0.94 MG/DL (0.55-1.30); FREE T4 1.14 NG/DL (0.76-1.46); GLOMERULAR FILTRATION RATE > 60.0 (>32); GLUCOSE, FASTING 151 MG/DL (70-100); POTASSIUM SERUM 4.1 MEQ/L (3.5-5.1); SODIUM LEVEL 142 MEQ/L (136-145); TROPONIN I < 0.02 NG/ML (< 0.10)
[2018-01-05 10:52] LABS: CK-MB VALUE MASS 1.5 NG/ML (<3.6); MB/CK RELATIVE INDEX 6.25 (< OR =4); NT-PRO BNP 318 PG/ML (<450)
[2018-01-05 12:36] LABS: CPK CREATINE PHOSPHOKINASE 29 U/L (26-192); MB/CK RELATIVE INDEX 6.89 (< OR =4); TROPONIN I 0.04 NG/ML (< 0.10)
== END 2018-01-05 13:14 | disposition home or self-care (01) ==
LOC: M ED 09:04
DX: I48.91 Unspecified atrial fibrillation (principal); R00.0 Tachycardia, unspecified; I25.10 Atherosclerotic heart disease of native coronary artery without angina pectoris; I25.2 Old myocardial infarction; I11.9 Hypertensive heart disease without heart failure; E78.5 Hyperlipidemia, unspecified; E07.9 Disorder of thyroid, unspecified; M51.9 Unspecified thoracic, thoracolumbar and lumbosacral intervertebral disc disorder; M19.90 Unspecified osteoarthritis, unspecified site; K27.9 Peptic ulcer, site unspecified, unspecified as acute or chronic, without hemorrhage or perforation; Z91.041 Radiographic dye allergy status; Z88.8 Allergy status to other drugs, medicaments and biological substances; Z91.030 Bee allergy status; Z79.899 Other long term (current) drug therapy; Z79.82 Long term (current) use of aspirin; Z79.01 Long term (current) use of anticoagulants; Z79.84 Long term (current) use of oral hypoglycemic drugs
CPT/HCPCS: 71045

== ENCOUNTER → 2018-01-20 | Outpatient (REF) | payer MEDICARE, MEDICAID ==
[2018-01-20 11:02] LABS: HEMATOCRIT 29.3 % (36.0-47.0); HEMOGLOBIN 8.4 g/dl (12.0-15.5); MEAN CORPUSCULAR HEMOGLOBIN 23.5 pg (27.0-33.0); MEAN CORPUSCULAR HGB CONC 28.7 g/dl (32.0-36.5); MEAN CORPUSCULAR VOLUME 81.8 fl (80.0-96.0); PLATELET COUNT, AUTOMATED 310 10^3/uL (150-450); RED BLOOD COUNT 3.58 10^6/uL (4.00-5.40); RED CELL DISTRIBUTION WIDTH 15.4 % (11.5-14.5); WHITE BLOOD COUNT 10.4 10^3/uL (4.0-10.0)
== END ==
DX: R05 Cough (principal); D64.9 Anemia, unspecified
CPT/HCPCS: 85027

== ENCOUNTER → 2018-01-20 | Outpatient (REF) | payer MEDICARE, MEDICAID ==
[2018-01-21 09:55] LABS: IMMEDIATE SPIN CROSSMATCH 1 2
== END ==
LOC: M LAB REF 15:11
DX: D64.9 Anemia, unspecified (principal)

== ENCOUNTER 2018-01-21 08:27 | Outpatient (CLI) | payer MEDICARE, MEDICAID ==
[2018-01-21] MEDS: ACETAMINOPHEN TAB 650MG DOSE (2X325MG) PO ×2 (09:22)
[2018-01-21] MEDS: diphenhydrAMINE 25 MG CAP PO ×2 (09:22)
[2018-01-21] MEDS: LEVALBUTEROL 1.25 MG/0.5 ML CONCENTRATE NEB INH ×4 (11:50→15:37)
== END 2018-01-21 16:00 | disposition home or self-care (01) ==
LOC: M OPCLI4PV 08:27 → M MSPAV 08:38 → M OPCLI4PV 16:00
DX: R05 Cough (principal); D64.9 Anemia, unspecified
CPT/HCPCS: 36430

== ENCOUNTER → 2018-01-21 | Outpatient (REF) | payer MEDICARE, MEDICAID ==
[2018-01-21 09:47] LABS: HEMATOCRIT 28.8 % (36.0-47.0); HEMOGLOBIN 8.2 g/dl (12.0-15.5); MEAN CORPUSCULAR HEMOGLOBIN 23.4 pg (27.0-33.0); MEAN CORPUSCULAR HGB CONC 28.5 g/dl (32.0-36.5); MEAN CORPUSCULAR VOLUME 82.3 fl (80.0-96.0); PLATELET COUNT, AUTOMATED 320 10^3/uL (150-450); RED CELL DISTRIBUTION WIDTH 15.5 % (11.5-14.5); WHITE BLOOD COUNT 9.3 10^3/uL (4.0-10.0)
== END ==
DX: D64.9 Anemia, unspecified (principal)

== ENCOUNTER → 2018-01-23 | Outpatient (REF) | payer MEDICARE, MEDICAID ==
[2018-01-23 10:11] LABS: HEMATOCRIT 30.1 % (36.0-47.0); HEMOGLOBIN 9.1 g/dl (12.0-15.5); MEAN CORPUSCULAR HEMOGLOBIN 24.7 pg (27.0-33.0); MEAN CORPUSCULAR HGB CONC 30.2 g/dl (32.0-36.5); MEAN CORPUSCULAR VOLUME 81.6 fl (80.0-96.0); PLATELET COUNT, AUTOMATED 294 10^3/uL (150-450); RED BLOOD COUNT 3.69 10^6/uL (4.00-5.40); RED CELL DISTRIBUTION WIDTH 15.9 % (11.5-14.5); WHITE BLOOD COUNT 9.2 10^3/uL (4.0-10.0)
== END ==
DX: D64.9 Anemia, unspecified (principal)
CPT/HCPCS: 85027

== ENCOUNTER → 2018-01-24 | Outpatient (REF) | payer MEDICARE, MEDICAID | DX: D64.9 Anemia, unspecified (principal) | CPT/HCPCS: 82270 ==

== ENCOUNTER → 2018-01-27 | Outpatient (REF) | payer MEDICARE, MEDICAID ==
[2018-01-27 09:34] LABS: HEMATOCRIT 34.4 % (36.0-47.0); HEMOGLOBIN 10.4 g/dl (12.0-15.5); MEAN CORPUSCULAR HEMOGLOBIN 24.8 pg (27.0-33.0); MEAN CORPUSCULAR HGB CONC 30.2 g/dl (32.0-36.5); MEAN CORPUSCULAR VOLUME 82.1 fl (80.0-96.0); PLATELET COUNT, AUTOMATED 381 10^3/uL (150-450); RED BLOOD COUNT 4.19 10^6/uL (4.00-5.40); RED CELL DISTRIBUTION WIDTH 15.9 % (11.5-14.5); WHITE BLOOD COUNT 13.3 10^3/uL (4.0-10.0)
== END ==
DX: D64.9 Anemia, unspecified (principal)
CPT/HCPCS: 85027

== ENCOUNTER → 2018-02-03 | Outpatient (REF) | payer MEDICARE, MEDICAID ==
[2018-02-03 10:28] LABS: HEMATOCRIT 35.8 % (36.0-47.0); HEMOGLOBIN 10.5 g/dl (12.0-15.5); MEAN CORPUSCULAR HGB CONC 29.3 g/dl (32.0-36.5); MEAN CORPUSCULAR VOLUME 81.7 fl (80.0-96.0); PLATELET COUNT, AUTOMATED 347 10^3/uL (150-450); RED BLOOD COUNT 4.38 10^6/uL (4.00-5.40); RED CELL DISTRIBUTION WIDTH 16.7 % (11.5-14.5); WHITE BLOOD COUNT 16.7 10^3/uL (4.0-10.0)
[2018-02-03 10:37] LABS: APPEARANCE, URINE HAZY (CLEAR); BACTERIA, URINE AUTO 1+ (NEGATIVE); BILIRUBIN, URINE AUTO NEGATIVE (NEGATIVE); BLOOD, URINE BLOOD NEGATIVE (NEGATIVE); COLOR, URINE YELLOW (YELLOW); GLUCOSE, URINE (UA) AUTO NEGATIVE (NEGATIVE); KETONE, URINE AUTO NEGATIVE (NEGATIVE); LEUKOCYTE ESTERASE, URINE AUTO 2+ (NEGATIVE); MUCUS, URINE SMALL (NEGATIVE); NITRITE, URINE AUTO NEGATIVE (NEGATIVE); PROTEIN, URINE AUTO NEGATIVE (NEGATIVE); RBC, URINE AUTO 3 /HPF (0-3); SPECIFIC GRAVITY URINE AUTO 1.014 (1.002-1.035); SQUAMOUS EPITHELIAL CELL UR AU 1 /HPF (0-6); UROBILINOGEN, URINE AUTO 0.2 mg/dL (0.0-2.0); WBC, URINE AUTO 21 /HPF (0-3)
[2018-02-03 10:58] LABS: ALBUMIN 2.7 GM/DL (3.2-5.2); ALBUMIN/GLOBULIN RATIO 0.82 (1.00-1.93); ALKALINE PHOSPHATASE 133 U/L (45-117); ALT/SGPT 51 U/L (12-78); ANION GAP 8 MEQ/L (8-16); AST/SGOT 19 U/L (7-37); BILIRUBIN,TOTAL 0.5 MG/DL (0.2-1.0); BLOOD UREA NITROGEN 33 MG/DL (7-18); CALCIUM LEVEL 8.8 MG/DL (8.8-10.2); CARBON DIOXIDE LEVEL 31 MEQ/L (21-32); CHLORIDE LEVEL 103 MEQ/L (98-107); CREATININE FOR GFR 1.15 MG/DL (0.55-1.30); GLOMERULAR FILTRATION RATE 47.7 (>32); GLUCOSE, FASTING 139 MG/DL (70-100); POTASSIUM SERUM 3.9 MEQ/L (3.5-5.1); SODIUM LEVEL 142 MEQ/L (136-145)
== END ==
DX: D64.9 Anemia, unspecified (principal); J18.9 Pneumonia, unspecified organism; Z79.899 Other long term (current) drug therapy
CPT/HCPCS: 80053

== ENCOUNTER → 2018-02-10 | Outpatient (REF) | payer MEDICARE, MEDICAID ==
[2018-02-10 10:34] LABS: HEMOGLOBIN 10.7 g/dl (12.0-15.5); MEAN CORPUSCULAR HEMOGLOBIN 23.7 pg (27.0-33.0); MEAN CORPUSCULAR HGB CONC 29.7 g/dl (32.0-36.5); MEAN CORPUSCULAR VOLUME 79.8 fl (80.0-96.0); PLATELET COUNT, AUTOMATED 283 10^3/uL (150-450); RED BLOOD COUNT 4.51 10^6/uL (4.00-5.40); RED CELL DISTRIBUTION WIDTH 17.4 % (11.5-14.5)
== END ==
DX: R05 Cough (principal)
CPT/HCPCS: 85027

== ENCOUNTER → 2018-02-12 | Outpatient (REF) | payer MEDICARE, MEDICAID ==
[2018-02-12 10:48] LABS: HEMATOCRIT 32.9 % (36.0-47.0); HEMOGLOBIN 9.8 g/dl (12.0-15.5); MEAN CORPUSCULAR HGB CONC 29.8 g/dl (32.0-36.5); MEAN CORPUSCULAR VOLUME 80.6 fl (80.0-96.0); PLATELET COUNT, AUTOMATED 254 10^3/uL (150-450); RED BLOOD COUNT 4.08 10^6/uL (4.00-5.40); RED CELL DISTRIBUTION WIDTH 17.5 % (11.5-14.5); WHITE BLOOD COUNT 11.8 10^3/uL (4.0-10.0)
== END ==
DX: D64.9 Anemia, unspecified (principal)
CPT/HCPCS: 85027

== ENCOUNTER → 2018-02-17 | Outpatient (REF) | payer MEDICARE, MEDICAID ==
[2018-02-17 09:57] LABS: HEMATOCRIT 32.3 % (36.0-47.0); HEMOGLOBIN 9.3 g/dl (12.0-15.5); MEAN CORPUSCULAR HEMOGLOBIN 23.4 pg (27.0-33.0); MEAN CORPUSCULAR HGB CONC 28.8 g/dl (32.0-36.5); MEAN CORPUSCULAR VOLUME 81.4 fl (80.0-96.0); PLATELET COUNT, AUTOMATED 276 10^3/uL (150-450); RED BLOOD COUNT 3.97 10^6/uL (4.00-5.40); RED CELL DISTRIBUTION WIDTH 17.1 % (11.5-14.5)
== END ==
DX: D64.9 Anemia, unspecified (principal)
CPT/HCPCS: 85027

== ENCOUNTER → 2018-02-18 | Outpatient (REF) | payer MEDICARE, MEDICAID ==
[2018-02-18 09:59] LABS: IRON (FE) 25 UG/DL (50-170)
[2018-02-18 12:02] LABS: ANION GAP 8 MEQ/L (8-16); BLOOD UREA NITROGEN 15 MG/DL (7-18); CALCIUM LEVEL 8.5 MG/DL (8.8-10.2); CARBON DIOXIDE LEVEL 32 MEQ/L (21-32); CHLORIDE LEVEL 102 MEQ/L (98-107); CREATININE FOR GFR 0.91 MG/DL (0.55-1.30); GLOMERULAR FILTRATION RATE > 60.0 (>32); GLUCOSE, FASTING 189 MG/DL (70-100); SODIUM LEVEL 142 MEQ/L (136-145); TOTAL IRON BINDING CAPACITY 355 UG/DL (250-450)
[2018-02-19 08:39] LABS: TRANSFERRIN 276 mg/dL (200-370)
== END ==
DX: D64.9 Anemia, unspecified (principal)
CPT/HCPCS: 84466

== ENCOUNTER → 2018-02-24 | Outpatient (REF) | payer MEDICARE, MEDICAID ==
[2018-02-24 10:26] LABS: HEMATOCRIT 34.6 % (36.0-47.0); MEAN CORPUSCULAR HEMOGLOBIN 23.1 pg (27.0-33.0); MEAN CORPUSCULAR HGB CONC 28.9 g/dl (32.0-36.5); MEAN CORPUSCULAR VOLUME 80.1 fl (80.0-96.0); PLATELET COUNT, AUTOMATED 394 10^3/uL (150-450); RED BLOOD COUNT 4.32 10^6/uL (4.00-5.40); WHITE BLOOD COUNT 9.1 10^3/uL (4.0-10.0)
[2018-02-24 10:44] LABS: ANION GAP 7 MEQ/L (8-16); BLOOD UREA NITROGEN 13 MG/DL (7-18); CALCIUM LEVEL 8.8 MG/DL (8.8-10.2); CARBON DIOXIDE LEVEL 34 MEQ/L (21-32); CHLORIDE LEVEL 103 MEQ/L (98-107); CREATININE FOR GFR 0.73 MG/DL (0.55-1.30); GLOMERULAR FILTRATION RATE > 60.0 (>32); GLUCOSE, FASTING 139 MG/DL (70-100); POTASSIUM SERUM 4.1 MEQ/L (3.5-5.1); SODIUM LEVEL 144 MEQ/L (136-145)
== END ==
DX: D64.9 Anemia, unspecified (principal)
CPT/HCPCS: 80048

== ENCOUNTER → 2018-03-02 | Outpatient (REF) | payer MEDICARE, MEDICAID ==
[2018-03-02 15:42] LABS: HEMATOCRIT 39.9 % (36.0-47.0); HEMOGLOBIN 11.5 g/dl (12.0-15.5); MEAN CORPUSCULAR HEMOGLOBIN 23.2 pg (27.0-33.0); MEAN CORPUSCULAR HGB CONC 28.8 g/dl (32.0-36.5); MEAN CORPUSCULAR VOLUME 80.4 fl (80.0-96.0); PLATELET COUNT, AUTOMATED 458 10^3/uL (150-450); RED BLOOD COUNT 4.96 10^6/uL (4.00-5.40); WHITE BLOOD COUNT 8.3 10^3/uL (4.0-10.0)
[2018-03-02 16:06] LABS: ANION GAP 7 MEQ/L (8-16); BLOOD UREA NITROGEN 14 MG/DL (7-18); CALCIUM LEVEL 9.6 MG/DL (8.8-10.2); CARBON DIOXIDE LEVEL 32 MEQ/L (21-32); CHLORIDE LEVEL 101 MEQ/L (98-107); CREATININE FOR GFR 0.89 MG/DL (0.55-1.30); GLOMERULAR FILTRATION RATE > 60.0 (>32); GLUCOSE, FASTING 139 MG/DL (70-100); POTASSIUM SERUM 3.3 MEQ/L (3.5-5.1); SODIUM LEVEL 140 MEQ/L (136-145)
[2018-03-02 18:56] LABS: APPEARANCE, URINE CLEAR (CLEAR); BACTERIA, URINE AUTO 1+ (NEGATIVE); BILIRUBIN, URINE AUTO NEGATIVE (NEGATIVE); BLOOD, URINE BLOOD NEGATIVE (NEGATIVE); COLOR, URINE YELLOW (YELLOW); GLUCOSE, URINE (UA) AUTO NEGATIVE (NEGATIVE); KETONE, URINE AUTO NEGATIVE (NEGATIVE); LEUKOCYTE ESTERASE, URINE AUTO NEGATIVE (NEGATIVE); MUCUS, URINE SMALL (NEGATIVE); NITRITE, URINE AUTO POSITIVE (NEGATIVE); PROTEIN, URINE AUTO NEGATIVE (NEGATIVE); RBC, URINE AUTO 2 /HPF (0-3); SPECIFIC GRAVITY URINE AUTO 1.006 (1.002-1.035); SQUAMOUS EPITHELIAL CELL UR AU 0 /HPF (0-6); UROBILINOGEN, URINE AUTO 0.2 mg/dL (0.0-2.0); WBC, URINE AUTO 2 /HPF (0-3)
== END ==
DX: N39.0 Urinary tract infection, site not specified (principal)
CPT/HCPCS: 80048

== ENCOUNTER → 2018-03-05 | Outpatient (REF) | payer MEDICARE, MEDICAID ==
[2018-03-05 10:37] LABS: ANION GAP 6 MEQ/L (8-16); BLOOD UREA NITROGEN 12 MG/DL (7-18); CALCIUM LEVEL 9.1 MG/DL (8.8-10.2); CARBON DIOXIDE LEVEL 33 MEQ/L (21-32); CHLORIDE LEVEL 104 MEQ/L (98-107); CREATININE FOR GFR 0.74 MG/DL (0.55-1.30); GLOMERULAR FILTRATION RATE > 60.0 (>32); GLUCOSE, FASTING 147 MG/DL (70-100); POTASSIUM SERUM 3.5 MEQ/L (3.5-5.1); SODIUM LEVEL 143 MEQ/L (136-145)
== END ==
DX: R53.1 Weakness (principal)
CPT/HCPCS: 80048

== ENCOUNTER → 2018-03-17 | Outpatient (REF) | payer MEDICARE, MEDICAID ==
[2018-03-17 12:13] LABS: HEMATOCRIT 39.1 % (36.0-47.0); HEMOGLOBIN 11.3 g/dl (12.0-15.5); MEAN CORPUSCULAR HEMOGLOBIN 22.2 pg (27.0-33.0); MEAN CORPUSCULAR HGB CONC 28.9 g/dl (32.0-36.5); PLATELET COUNT, AUTOMATED 380 10^3/uL (150-450); RED BLOOD COUNT 5.08 10^6/uL (4.00-5.40); RED CELL DISTRIBUTION WIDTH 17.7 % (11.5-14.5); WHITE BLOOD COUNT 11.1 10^3/uL (4.0-10.0)
[2018-03-17 13:16] LABS: ESTIMATED AVERAGE GLUCOSE 163 MG/DL (60-110); HEMOGLOBIN A1c 7.3 %
== END ==
DX: D64.9 Anemia, unspecified (principal); Z79.899 Other long term (current) drug therapy
CPT/HCPCS: 83036

== ENCOUNTER → 2018-03-18 | Outpatient (REF) | payer MEDICARE, MEDICAID ==
[2018-03-18 08:09] LABS: HEMATOCRIT 42.3 % (36.0-47.0); MEAN CORPUSCULAR HEMOGLOBIN 22.2 pg (27.0-33.0); MEAN CORPUSCULAR HGB CONC 28.4 g/dl (32.0-36.5); MEAN CORPUSCULAR VOLUME 78.2 fl (80.0-96.0); PLATELET COUNT, AUTOMATED 412 10^3/uL (150-450); RED BLOOD COUNT 5.41 10^6/uL (4.00-5.40); WHITE BLOOD COUNT 12.6 10^3/uL (4.0-10.0)
[2018-03-18 08:26] LABS: ANION GAP 8 MEQ/L (8-16); BLOOD UREA NITROGEN 30 MG/DL (7-18); CALCIUM LEVEL 9.3 MG/DL (8.8-10.2); CARBON DIOXIDE LEVEL 33 MEQ/L (21-32); CHLORIDE LEVEL 104 MEQ/L (98-107); CREATININE FOR GFR 1.13 MG/DL (0.55-1.30); GLOMERULAR FILTRATION RATE 48.7 (>32); GLUCOSE, FASTING 179 MG/DL (70-100); POTASSIUM SERUM 3.3 MEQ/L (3.5-5.1); SODIUM LEVEL 145 MEQ/L (136-145)
== END ==
DX: R53.1 Weakness (principal)
CPT/HCPCS: 84443

== ENCOUNTER → 2018-03-19 | Outpatient (REF) | payer MEDICARE, MEDICAID ==
[2018-03-19 14:26] LABS: HEMATOCRIT 37.2 % (36.0-47.0); HEMOGLOBIN 10.7 g/dl (12.0-15.5); MEAN CORPUSCULAR HEMOGLOBIN 22.5 pg (27.0-33.0); MEAN CORPUSCULAR HGB CONC 28.8 g/dl (32.0-36.5); MEAN CORPUSCULAR VOLUME 78.2 fl (80.0-96.0); PLATELET COUNT, AUTOMATED 391 10^3/uL (150-450); RED BLOOD COUNT 4.76 10^6/uL (4.00-5.40); RED CELL DISTRIBUTION WIDTH 17.8 % (11.5-14.5); WHITE BLOOD COUNT 9.6 10^3/uL (4.0-10.0)
[2018-03-19 14:51] LABS: ANION GAP 8 MEQ/L (8-16); BLOOD UREA NITROGEN 28 MG/DL (7-18); CALCIUM LEVEL 9.1 MG/DL (8.8-10.2); CARBON DIOXIDE LEVEL 33 MEQ/L (21-32); CHLORIDE LEVEL 106 MEQ/L (98-107); CREATININE FOR GFR 1.09 MG/DL (0.55-1.30); GLOMERULAR FILTRATION RATE 50.8 (>32); GLUCOSE, FASTING 184 MG/DL (70-100); POTASSIUM SERUM 3.3 MEQ/L (3.5-5.1); SODIUM LEVEL 147 MEQ/L (136-145)
== END ==
DX: R53.83 Other fatigue (principal)
CPT/HCPCS: 80048

== ENCOUNTER → 2018-03-20 | Outpatient (REF) | payer MEDICARE, MEDICAID ==
[2018-03-20 11:24] LABS: ANION GAP 8 MEQ/L (8-16); BLOOD UREA NITROGEN 26 MG/DL (7-18); CALCIUM LEVEL 8.8 MG/DL (8.8-10.2); CARBON DIOXIDE LEVEL 33 MEQ/L (21-32); CHLORIDE LEVEL 107 MEQ/L (98-107); CREATININE FOR GFR 0.99 MG/DL (0.55-1.30); GLOMERULAR FILTRATION RATE 56.8 (>32); GLUCOSE, FASTING 145 MG/DL (70-100); POTASSIUM SERUM 3.3 MEQ/L (3.5-5.1); SODIUM LEVEL 148 MEQ/L (136-145)
== END ==
DX: E86.0 Dehydration (principal)
CPT/HCPCS: 80048

== ENCOUNTER → 2018-03-21 | Outpatient (REF) | payer MEDICARE, MEDICAID ==
[2018-03-21 09:26] LABS: ANION GAP 7 MEQ/L (8-16); BLOOD UREA NITROGEN 17 MG/DL (7-18); CALCIUM LEVEL 9.2 MG/DL (8.8-10.2); CARBON DIOXIDE LEVEL 31 MEQ/L (21-32); CHLORIDE LEVEL 107 MEQ/L (98-107); CREATININE FOR GFR 0.83 MG/DL (0.55-1.30); GLOMERULAR FILTRATION RATE > 60.0 (>32); GLUCOSE, FASTING 153 MG/DL (70-100); POTASSIUM SERUM 3.1 MEQ/L (3.5-5.1); SODIUM LEVEL 145 MEQ/L (136-145)
== END ==
DX: E86.0 Dehydration (principal)
CPT/HCPCS: 80048

== ENCOUNTER → 2018-03-23 | Outpatient (REF) | payer MEDICARE, MEDICAID ==
[2018-03-23 11:07] LABS: ANION GAP 7 MEQ/L (8-16); BLOOD UREA NITROGEN 9 MG/DL (7-18); CALCIUM LEVEL 9.3 MG/DL (8.8-10.2); CARBON DIOXIDE LEVEL 34 MEQ/L (21-32); CHLORIDE LEVEL 104 MEQ/L (98-107); CREATININE FOR GFR 0.69 MG/DL (0.55-1.30); GLOMERULAR FILTRATION RATE > 60.0 (>32); GLUCOSE, FASTING 176 MG/DL (70-100); POTASSIUM SERUM 2.8 MEQ/L (3.5-5.1); SODIUM LEVEL 145 MEQ/L (136-145)
== END ==
DX: E86.0 Dehydration (principal)
CPT/HCPCS: 80048

== ENCOUNTER → 2018-03-24 | Outpatient (REF) | payer MEDICARE, MEDICAID ==
[2018-03-24 10:47] LABS: HEMATOCRIT 37.8 % (36.0-47.0); HEMOGLOBIN 10.4 g/dl (12.0-15.5); MEAN CORPUSCULAR HEMOGLOBIN 21.9 pg (27.0-33.0); MEAN CORPUSCULAR HGB CONC 27.5 g/dl (32.0-36.5); MEAN CORPUSCULAR VOLUME 79.6 fl (80.0-96.0); PLATELET COUNT, AUTOMATED 358 10^3/uL (150-450); RED BLOOD COUNT 4.75 10^6/uL (4.00-5.40)
[2018-03-24 10:56] LABS: ANION GAP 7 MEQ/L (8-16); BLOOD UREA NITROGEN 12 MG/DL (7-18); CALCIUM LEVEL 9.1 MG/DL (8.8-10.2); CARBON DIOXIDE LEVEL 33 MEQ/L (21-32); CHLORIDE LEVEL 106 MEQ/L (98-107); CREATININE FOR GFR 0.86 MG/DL (0.55-1.30); GLOMERULAR FILTRATION RATE > 60.0 (>32); GLUCOSE, FASTING 223 MG/DL (70-100); POTASSIUM SERUM 3.6 MEQ/L (3.5-5.1); SODIUM LEVEL 146 MEQ/L (136-145)
== END ==
DX: E87.6 Hypokalemia (principal)
CPT/HCPCS: 80048

== ENCOUNTER → 2018-03-30 | Outpatient (REF) | payer MEDICARE, MEDICAID ==
[2018-03-30 14:23] LABS: HEMATOCRIT 40.3 % (36.0-47.0); HEMOGLOBIN 11.5 g/dl (12.0-15.5); MEAN CORPUSCULAR HEMOGLOBIN 22.3 pg (27.0-33.0); MEAN CORPUSCULAR HGB CONC 28.5 g/dl (32.0-36.5); MEAN CORPUSCULAR VOLUME 78.3 fl (80.0-96.0); PLATELET COUNT, AUTOMATED 375 10^3/uL (150-450); RED BLOOD COUNT 5.15 10^6/uL (4.00-5.40); RED CELL DISTRIBUTION WIDTH 18.5 % (11.5-14.5); WHITE BLOOD COUNT 10.5 10^3/uL (4.0-10.0)
[2018-03-30 14:48] LABS: ALBUMIN/GLOBULIN RATIO 0.68 (1.00-1.93); ALKALINE PHOSPHATASE 159 U/L (45-117); ALT/SGPT 21 U/L (12-78); ANION GAP 8 MEQ/L (8-16); AST/SGOT 20 U/L (7-37); BILIRUBIN,TOTAL 0.5 MG/DL (0.2-1.0); BLOOD UREA NITROGEN 15 MG/DL (7-18); CALCIUM LEVEL 10.1 MG/DL (8.8-10.2); CARBON DIOXIDE LEVEL 31 MEQ/L (21-32); CHLORIDE LEVEL 103 MEQ/L (98-107); CREATININE FOR GFR 0.77 MG/DL (0.55-1.30); GLOMERULAR FILTRATION RATE > 60.0 (>32); GLUCOSE, FASTING 136 MG/DL (70-100); MAGNESIUM LEVEL 1.8 MG/DL (1.8-2.4); POTASSIUM SERUM 4.5 MEQ/L (3.5-5.1); SODIUM LEVEL 142 MEQ/L (136-145); TOTAL PROTEIN 7.4 GM/DL (6.4-8.2)
[2018-03-30 15:03] LABS: VITAMIN B12 LEVEL 634 PG/ML
[2018-03-30 15:04] LABS: FOLATE 14.2 NG/ML
== END ==
DX: R29.6 Repeated falls (principal)
CPT/HCPCS: 82746

== ENCOUNTER → 2018-03-31 | Outpatient (CLI) | payer MEDICARE, MEDICAID | LOC: M RAD 17:57 | DX: R41.82 Altered mental status, unspecified (principal) | CPT/HCPCS: 70450 ==

== ENCOUNTER → 2018-04-07 | Outpatient (REF) | payer MEDICARE, MEDICAID ==
[2018-04-07 17:47] LABS: HEMATOCRIT 37.6 % (36.0-47.0); HEMOGLOBIN 10.6 g/dl (12.0-15.5); MEAN CORPUSCULAR HEMOGLOBIN 21.9 pg (27.0-33.0); MEAN CORPUSCULAR HGB CONC 28.2 g/dl (32.0-36.5); MEAN CORPUSCULAR VOLUME 77.8 fl (80.0-96.0); PLATELET COUNT, AUTOMATED 474 10^3/uL (150-450); RED BLOOD COUNT 4.83 10^6/uL (4.00-5.40); WHITE BLOOD COUNT 9.3 10^3/uL (4.0-10.0)
[2018-04-07 18:08] LABS: ANION GAP 6 MEQ/L (8-16); BLOOD UREA NITROGEN 20 MG/DL (7-18); C REACTIVE PROTEIN QUANTITATIV 1.35 MG/DL (0.00-0.30); CALCIUM LEVEL 9.2 MG/DL (8.8-10.2); CARBON DIOXIDE LEVEL 28 MEQ/L (21-32); CHLORIDE LEVEL 111 MEQ/L (98-107); CREATININE FOR GFR 0.88 MG/DL (0.55-1.30); GLOMERULAR FILTRATION RATE > 60.0 (>32); GLUCOSE, FASTING 156 MG/DL (70-100); POTASSIUM SERUM 5.1 MEQ/L (3.5-5.1); SODIUM LEVEL 145 MEQ/L (136-145)
== END ==
DX: D64.9 Anemia, unspecified (principal); I50.9 Heart failure, unspecified
CPT/HCPCS: 80048

== ENCOUNTER → 2018-04-14 | Outpatient (REF) | payer MEDICARE, MEDICAID ==
[2018-04-14 10:12] LABS: HEMATOCRIT 37.5 % (36.0-47.0); HEMOGLOBIN 10.6 g/dl (12.0-15.5); MEAN CORPUSCULAR HGB CONC 28.3 g/dl (32.0-36.5); MEAN CORPUSCULAR VOLUME 77.8 fl (80.0-96.0); PLATELET COUNT, AUTOMATED 380 10^3/uL (150-450); RED BLOOD COUNT 4.82 10^6/uL (4.00-5.40); RED CELL DISTRIBUTION WIDTH 18.1 % (11.5-14.5); WHITE BLOOD COUNT 9.7 10^3/uL (4.0-10.0)
[2018-04-14 10:40] LABS: ANION GAP 8 MEQ/L (8-16); BLOOD UREA NITROGEN 16 MG/DL (7-18); CALCIUM LEVEL 9.6 MG/DL (8.8-10.2); CARBON DIOXIDE LEVEL 27 MEQ/L (21-32); CHLORIDE LEVEL 108 MEQ/L (98-107); CREATININE FOR GFR 0.75 MG/DL (0.55-1.30); GLOMERULAR FILTRATION RATE > 60.0 (>32); GLUCOSE, FASTING 130 MG/DL (70-100); POTASSIUM SERUM 4.6 MEQ/L (3.5-5.1); SODIUM LEVEL 143 MEQ/L (136-145)
== END ==
DX: D64.9 Anemia, unspecified (principal); I10 Essential (primary) hypertension
CPT/HCPCS: 80048